=== PATIENT | male | born 1950 | race African-American/Black ===

== ENCOUNTER 2019-05-29 10:00 | Outpatient (RCR) | payer BC, MEDICARE, SELFPAY ==
[2019-03-01 12:13] VITALS: PULSE 50
--- NOTE | 2019-03-04 11:43 | PCCPR ---
Absent today due to inclement weather.
--- NOTE | 2019-04-25 10:54 | PCCPR ---
Liborio absent this week. Called today to check in with him and he said that Monday he had a doctor's appointment, Monday he wasn't feeling well and today he had people at his house doing repair work. He plans to return Monday.
== END 2019-05-29 16:15 | disposition home or self-care (01) ==
LOC: ANHCPREHAB 10:00
PROVIDERS: PCP Family Medicine; Visit Provider Internal Medicine Cardiovascular Disease
DX: Z95.1 Presence of aortocoronary bypass graft (principal)
CPT/HCPCS: 93798

== ENCOUNTER 2020-01-03 07:09 | Outpatient (NON) | payer BC, MEDICARE, SELFPAY ==
[2020-01-03 22:31] LABS: SARS-CoV-2 RNA PCR Negative
== END 2020-01-03 07:10 ==
PROVIDERS: PCP Family Medicine; Visit Provider Family Medicine
DX: R68.89 Other general symptoms and signs (principal); Z20.828 Contact with and (suspected) exposure to other viral communicable diseases
CPT/HCPCS: 87635; C9803; U0003

== ENCOUNTER 2020-01-31 11:17 | Outpatient (CLI) | payer BC, MEDICARE, SELFPAY ==
[2020-01-31 12:03] LABS: Cholesterol 155 mg/dL (0-200); HDL Direct 64 mg/dL; Triglycerides 43 mg/dL (<150)
[2020-01-31 12:13] LABS: LDL Cholesterol Direct 56 mg/dL
== END 2020-01-31 11:18 | disposition home or self-care (01) ==
LOC: ANHLAB 11:20
PROVIDERS: PCP Family Medicine; Visit Provider Internal Medicine Cardiovascular Disease
DX: I25.110 Atherosclerotic heart disease of native coronary artery with unstable angina pectoris (principal); Z13.220 Encounter for screening for lipoid disorders; Z79.899 Other long term (current) drug therapy
CPT/HCPCS: 36415; 80061

== ENCOUNTER 2021-01-15 11:33 | Outpatient (CLI) | payer BC, MEDICARE, SELFPAY ==
[2021-01-15 12:01] LABS: Basophils Percent Auto 0.7 % (0.2-1.2); Eosinophils Absolute Auto 0.1 K/mm3 (0-0.3); Eosinophils Percent Auto 4.6 % (0-4.4); Hematocrit 41.9 % (42.0-52.0); Hemoglobin 14.1 g/dL (14.0-18.0); Immature Granulocyte Absolute 0.01 K/mm3 (0.00-0.031); Immature Granulocyte Percent A 0.3 % (0-0.5); Lymphocytes Absolute Auto 0.84 K/mm3 (0.9-3.2); Lymphocytes Percent Auto 27.8 % (18.3-44.2); Mean Corpuscular HGB Conc 33.7 g/dl (32-36); Mean Corpuscular Hemoglobin 31.2 pg (26-34); Mean Corpuscular Volume 92.7 fl (80-100); Mean Platelet Volume 8.7 fl (7.4-10.4); Monocytes Absolute Auto 0.3 K/mm3 (0.1-0.6); Monocytes Percent Auto 9.3 % (2.6-8.5); Neutrophils Absolute Auto 1.7 K/mm3 (1.3-6.7); Neutrophils Percent Auto 57.3 % (45.5-73.1); Platelet Count Result 161 k/mm3 (150-375); Red Blood Count 4.52 M/mm3 (4.6-6.20); Red Cell Distribution Width 13.2 % (11.5-14.5)
[2021-01-15 12:13] LABS: Alanine Aminotransferase 32 U/L (4-50); Albumin Level 4.5 g/dL (3.5-5.1); Alkaline Phosphatase 89 U/L (38-126); Anion Gap 8 mmol/L (8-16); Aspartate Amino Transferase 35 U/L (17-59); Bilirubin,Total 0.6 mg/dL (0.2-1.3); Blood Urea Nitrogen 14 mg/dL (9-20); Calcium 9.1 mg/dL (8.4-10.2); Carbon Dioxide 28 mmol/L (22-30); Chloride 105 mmol/L (98-107); Cholesterol 142 mg/dL (0-200); Estimated Glomerular Filt Rate > 60; Glucose 101 mg/dL (65-110); HDL Direct 81 mg/dL; Potassium 4.4 mmol/L (3.4-5.0); Sodium 141 mmol/L (137-145); Triglycerides 40 mg/dL (<150)
[2021-01-15 12:25] LABS: LDL Cholesterol Direct 37 mg/dL
[2021-01-15 12:44] LABS: Prostate Specific Antigen 1.5 ng/mL (< OR = 4.0)
[2021-01-15 13:56] LABS: Folic Acid 7.8 ng/mL (2.76->20)
[2021-01-15 14:01] LABS: Erythrocyte Sedimentation Rate 23 mm/hr (0-20)
== END 2021-01-15 11:34 | disposition home or self-care (01) ==
LOC: ANHLAB 11:44
PROVIDERS: PCP Family Medicine; Visit Provider Physician Assistant Medical
DX: R42 Dizziness and giddiness (principal); I25.10 Atherosclerotic heart disease of native coronary artery without angina pectoris; E78.5 Hyperlipidemia, unspecified; F03.90 Unspecified dementia, unspecified severity, without behavioral disturbance, psychotic disturbance, mood disturbance, and anxiety; I10 Essential (primary) hypertension; Z68.25 Body mass index [BMI] 25.0-25.9, adult; Z12.5 Encounter for screening for malignant neoplasm of prostate
CPT/HCPCS: 36415; 80053; 80061; 82607; 82746; 84153; 84443; 85025; 85652; G0103

== ENCOUNTER 2021-03-23 14:00 | Outpatient (CLI) | payer BC, MEDICARE, SELFPAY ==
--- NOTE | ~2021-03-23 | MR_ITS ---
EXAMINATION: MR lumbar spine wo [facility] EXAM DATE: 03/23/2021 15:23 INDICATION: M54.50 - Low back pain, unspecified . TECHNIQUE: Multi-sequential, multiplanar MR images of the lumbar spine were obtained without contrast . Sagittal T1, T2, T2 fat saturation images. Axial T2 weighted images. Comparison is made to prior examination from 08/20/2013. FINDINGS: There is been interval posterior fusion L4-S1. Interbody device at L5-S1. Solid bone bridgi ng of the vertebral bodies at L4-5 and grade 1 anterolisthesis position. Moderate to severe disc dise ase at L2-3 with endplate edema and mild endplate compression fractures identified, probably subacute . Mild loss of these L2 and L3 vertebral body heights. Moderate disc disease L3-4. The conus medullar is terminates at the T12-L1 level and has normal signal intensity and morphology. Level by level evaluation: T12-L1: Disc does not extend beyond the endplate margin. Facet arthropathy: Minimal. Neural foraminal stenosis: No stenosis. Central canal stenosis: No stenosis. L1-L2: Disc does not extend beyond the endplate margin. Facet arthropathy: Mild. Neural foraminal stenosis: Mild right. Central canal stenosis: No stenosis. L2-L3: There is a moderate diffuse disc bulge. Facet arthropathy: Severe right, mild to moderate left. Neural foraminal stenosis: Moderate to severe left, moderate right. Central canal stenosis: Moderate. Left hemilaminotomy. L3-L4: There is a moderate to large diffuse disc bulge. Facet arthropathy: Severe bilateral. Ligamentum flavum enlargement. Neural foraminal stenosis: Moderate bilateral. Central canal stenosis: Moderate to severe. L4-L5: This level is fused. Facet arthropathy: Fused. Neural foraminal stenosis: Moderate right, mild to moderate left. Central canal stenosis: Mild. L5-S1: This level is fused. Facet arthropathy: Fused. Neural foraminal stenosis: Mild to moderate right, mild left. Central canal stenosis: No stenosis. IMPRESSION: 1. Lumbar spondylosis with moderate to severe L3-4 central canal stenosis. 2. L2-3 and L3-4 neural foraminal stenosis. Reviewed, dictated and finalized at location A. R CUTTER
== END 2021-03-23 14:01 | disposition home or self-care (01) ==
LOC: ANHIMG 14:05
PROVIDERS: PCP Family Medicine; Visit Provider Family Medicine
DX: G89.29 Other chronic pain (principal); M54.50 Low back pain, unspecified; Z98.890 Other specified postprocedural states; M47.816 Spondylosis without myelopathy or radiculopathy, lumbar region; M48.061 Spinal stenosis, lumbar region without neurogenic claudication
CPT/HCPCS: 72148

== ENCOUNTER 2021-06-03 11:00 | Outpatient (RCR) | payer BC, MEDICARE, SELFPAY ==
--- NOTE | 2021-03-11 10:23 | PTOPEVAL ---
PHYSICAL THERAPY EVALUATION AND PLAN OF CARE 03-11-21 Thank you for referring Liborio Wolfe to [facility], for the diagnosis of back pain and dizziness. He determined that he would like to start his PT treatment on the dizziness. After that is completed, will do evaluation and treatment for low back pain. He is scheduled to be seen for therapy? 1-2 x/week for 5 weeks. Please review, sign, date and return this plan of care JUAN. I agree with and certify that the following plan of care is medically necessary. Referring Physician Date Attending Provider: Rosalba Gaston MD PT Outpatient Evaluation Start: 03/11/21 09:09 Document 03/11/21 09:00 KAROL (Rec: 03/11/21 10:22 KAROL [id number]) Past Medical History Source of Past Medical History Recalled from Previous Visit, Confirmed with Patient/Family Neurological History Hx Other Neurological Disorders Yes: VERTIGO Cardiovascular History Hx Cardiac Arrhythmia Yes: PVC'S Hx Cardiac Surgery Yes: CABG 2018 Hx Coronary Artery Bypass Graft Yes: JAN 2019 Hx Coronary Artery Disease Yes Hx Hypercholesterolemia Yes: meds Hx Hypertension Yes: meds Hx Palpitations Yes Respiratory History Hx Sleep Apnea Yes: HAD SURGERY TO CORRECT Gastrointestinal History Hx Gastroesophageal Reflux Disease Yes Hx Ulcer Yes: DUODENAL REMOTE HISTORY Genitourinary History Hx Genitourinary Disorders No Significant History Musculoskeletal History Hx Arthritis Yes: from top to bottom of body;have had wrist B,neck& back injections Hx Degenerative Disk Disease Yes Hx Joint Replacement Yes: R TKR and revision of it Hx Spinal Surgery Yes: LUMBER FUSION L4-5/S1, PARTIAL LAMINECTOMY,R&L rot cuff surg Hx Other Musculoskeletal Disorders Yes: BUNIONECTOMY RIGHT FOOT Hematological History Hx Hematological Disorders No Significant History Endocrine History Hx Diabetes Yes: prediabetic- monitoring HEENT History Hx HEENT Disorders No Significant History Integumentary History Hx Skin Disorders No Significant History Reproductive History Hx Reproductive Disorders No Significant History Psychosocial History Hx Depression Yes: MEDS Pain History History of Any Previous or Ongoing No Significant History Instance of Pain Anesthesia History Hx Anesthesia Reactions No Significant History Evaluation Information Problem Diagnosis dizziness, lower back strain, overexertion from repetitve movements Onset August 2020 Subjective Information pt has multiple diag
--- NOTE | 2021-04-12 11:48 | PTOPEVAL ---
PHYSICAL THERAPY REEVALUATION 04-12-21 Refer to the clinical summary below, for his status today, compared to the initial evaluation, for his vestibular system. The goals were partially achieved. His vestibular treatment will be completed and at his next appointment, his back pain will be evaluated and a treatment plan set for his back pain. Thank you for referring Liborio Wolfe to [facility][Note 3[facility]? Please review, sign, date and return this reevaluation report JUAN. I agree with and certify that the following plan of care is medically necessary. Referring Physician Date Attending Provider: Rosalba Gaston MD Document 04/12/21 11:05 KAROL (Rec: 04/12/21 11:48 KAROL [id number]) Assessment Status Re-evaluation Subjective Information Liborio reports: overall the Query Text:As Reported By Patient/ dizziness is better, am more Family aware of how to do things and think about what I am doing-- move slower and not as quickly ; still have some dizziness; sometimes feel like almost walking normal; have not had any recent falls; am able to get through what I need to do ; does most of the activities and going out shopping; have not been in the mind set to go out and do things like I used to do; feel like ready to finish therapy treatment for vestibular and start on balance and back issues. Pain Assessment Timing of Pain Assessment Timing of Pain Assessment Assessment Pain Scale Pain Scale Used Numeric (1 - 10) Self Report Pain Assessment Bilateral Neck Reported Pain Level 0 Bilateral Back Reported Pain Level 2 Pain Frequency Chronic Pain Score Pain Score 0,2: Self Report Interventions Used Interventions Used By Clinicians Education Vestibular Evaluation Vestibular Medical Information Standardized Tests Dizziness Handicap Inventory Standardized Test Scores (Number 0-100) 36 Vestibular Testing Vestibular Testing Comments standing: -head stable, with eye tracking R/L 30 reps and up/ down x 30 reps- no s/s and maintain standing balance; and good tracking of eyes; - gaze stabilization with head turn R/L 30 reps and up/down 30 reps-- no
--- NOTE | 2021-04-14 13:26 | PTOPEVAL ---
PHYSICAL THERAPY EVALUATION AND PLAN OF CARE 04-14-21 Thank you for referring Liborio Wolfe to [facility], for the diagnosis of back pain. He is scheduled to be seen for therapy? 2 x/week for 4 weeks. Please review, sign, date and return this plan of care JUAN. I agree with and certify that the following plan of care is medically necessary. Referring Physician Date Attending Provider: Rosalba Gaston MD PT Outpatient Evaluation Document 04/14/21 12:35 KAROL (Rec: 04/14/21 13:26 KAROL [id number]) Past Medical History Source of Past Medical History Recalled from Previous Visit, Confirmed with Patient/Family Neurological History Hx Other Neurological Disorders Yes: VERTIGO Cardiovascular History Hx Cardiac Arrhythmia Yes: PVC'S Hx Cardiac Surgery Yes: CABG 2018 Hx Coronary Artery Bypass Graft Yes: JAN 2019 Hx Coronary Artery Disease Yes Hx Hypercholesterolemia Yes: meds Hx Hypertension Yes: meds Hx Palpitations Yes Respiratory History Hx Sleep Apnea Yes: HAD SURGERY TO CORRECT Gastrointestinal History Hx Gastroesophageal Reflux Disease Yes Hx Ulcer Yes: DUODENAL REMOTE HISTORY Genitourinary History Hx Genitourinary Disorders No Significant History Musculoskeletal History Hx Arthritis Yes: from top to bottom of body;have had wrist B,neck& back injections Hx Degenerative Disk Disease Yes Hx Joint Replacement Yes: R TKR and revision of it Hx Spinal Surgery Yes: LUMBER FUSION L4-5/S1, PARTIAL LAMINECTOMY,R&L rot cuff surg Hx Other Musculoskeletal Disorders Yes: BUNIONECTOMY RIGHT FOOT Hematological History Hx Hematological Disorders No Significant History Endocrine History Hx Diabetes Yes: prediabetic- monitoring HEENT History Hx HEENT Disorders No Significant History Integumentary History Hx Skin Disorders No Significant History Reproductive History Hx Reproductive Disorders No Significant History Psychosocial History Hx Depression Yes: MEDS Pain History History of Any Previous or Ongoing No Significant History Instance of Pain Anesthesia History Hx Anesthesia Reactions No Significant History Evaluation Information Problem Diagnosis low back pain Onset Jan 2021 Subjective Information gradual increase in back pain; Query Text:As Reported By Patient/ chronic back pain issues; Family seeing pain management dr for neck and back pain, to have back injection next week; have
--- NOTE | 2021-04-21 11:34 | PCPTNOTE ---
Patient called & cancelled scheduled appointment this date due to snowy weather.
--- NOTE | 2021-05-04 11:29 | OTOPEVAL ---
OCCUPATIONAL THERAPY INITIAL EVALUATION REPORT 05/04/21 Thank you for referring Liborio Wolfe to [facility].? The patient is scheduled to be seen for therapy? 2x/week for 4 weeks. Please review, sign, date and return this plan of care JUAN. I agree with and certify that the following plan of care is medically necessary. Referring Physician Date Referring Provider: Dr. Shun Blevins *OT Outpatient Evaluation Start: 05/04/21 09:59 Outpatient Past Medical History Past Medical History Source of Past Medical History Recalled from Previous Visit, Confirmed with Patient/Family Neurological History Hx Other Neurological Disorders Yes: VERTIGO Cardiovascular History Hx Cardiac Arrhythmia Yes: PVC'S Hx Cardiac Surgery Yes: CABG 2018 Hx Coronary Artery Bypass Graft Yes: JAN 2019 Hx Coronary Artery Disease Yes Hx Hypercholesterolemia Yes: meds Hx Hypertension Yes: meds Hx Palpitations Yes Respiratory History Hx Sleep Apnea Yes: HAD SURGERY TO CORRECT Gastrointestinal History Hx Gastroesophageal Reflux Disease Yes Hx Ulcer Yes: DUODENAL REMOTE HISTORY Genitourinary History Hx Genitourinary Disorders No Significant History Musculoskeletal History Hx Arthritis Yes: from top to bottom of body;have had wrist B,neck& back injections Hx Degenerative Disk Disease Yes Hx Joint Replacement Yes: R TKR and revision of it Hx Spinal Surgery Yes: LUMBER FUSION L4-5/S1, PARTIAL LAMINECTOMY,R&L rot cuff surg Hx Other Musculoskeletal Disorders Yes: BUNIONECTOMY RIGHT FOOT Hematological History Hx Hematological Disorders No Significant History Endocrine History Hx Diabetes Yes: prediabetic- monitoring HEENT History Hx HEENT Disorders No Significant History Integumentary History Hx Skin Disorders No Significant History Reproductive History Hx Reproductive Disorders No Significant History Psychosocial History Hx Depression Yes: MEDS Pain History History of Any Previous or Ongoing No Significant History Instance of Pain Anesthesia History Hx Anesthesia Reactions No Significant History Evaluation Information Problem Diagnosis Bilateral wrist pain and finger stiffness Onset Chronic Subjective Information Liborio reports getting Query Text:As Reported By Patient/ regular injections (4x/year) Family to the left wrist for ~2 years now. He gets right wrist injections about every other MD visit or twice a year. He
--- NOTE | 2021-05-13 11:46 | PTOPEVAL ---
PHYSICAL THERAPY DISCHARGE 05-13-21 Refer to the clinical summary below, for his status today, compared to the last assessment. He has improved and goals were achieved. Discharge PT services. Thank you for referring Liborio Wolfe to [facility].? Please review, sign, date and return this Discharge report JUAN. I agree with and certify that the following plan of care is medically necessary. Referring Physician Date Attending Provider: Rosalba Gaston MD Document 05/13/21 11:00 KAROL (Rec: 05/13/21 11:46 KAROL [id number]) Subjective Information Liborio reports: am not having Query Text:As Reported By Patient/ as much discomfort when lying Family down as I was; had 1 injection and 2nd is scheduled May 21/next week; working on the exercises at home; Pain Assessment Timing of Pain Assessment Timing of Pain Assessment Assessment Pain Scale Pain Scale Used Numeric (1 - 10) Self Report Pain Assessment Bilateral Back Reported Pain Level 1 Pain Description Aching,Sharp,Tightness Radicular Pain Location R and L lumbar area Pain Frequency Chronic,Continuous Other Pain Description sometimes sharp; Lowest Pain Intensity 0 Greatest Pain Intensity 3 Pain Aggravating Factors Exercise/Activity,Walking, Weight Bearing/Standing Pain Behaviors None Pain Score Pain Score 1: Self Report Additional Pain Score Comments Oswestry self assessment functional activity score of 34% limitation in activity reported tolerances: sitting depend upon surface, in comfortable chair 60 min, standing 10 min, walking 10-15 minutes back is better than before; injections and therapy have really helped; Interventions Used Interventions Used By Clinicians Education,Exercise Pain Relief Interventions Used By Exercise,Inactivity/Rest, Patient Position Change Other Alleviating Interventions stretching, take tylenol PRN; use roller massage for back Gross Lower Extremity Range of Motion hamstring length with supine Comments SLR R 70'/L 70' hip extension in prone R 5'/L 5' anterior hip/quad length with prone knee flexion R 90'/L 95' Gross Lower Extremity Strength functional strength testing:
--- NOTE | 2021-06-03 11:40 | OTOPEVAL ---
OCCUPATIONAL THERAPY RE-EVALUATION REPORT AND DISCHARGE SUMMARY 06/03/21 Liborio is a 71 year-old, right handed male has participated in outpatient hand therapy x6 visits for bilateral wrist/hand pain due to degenerative changes from OA. Treatment has included modalities for pain, manual therapy, education on joint protection techniques, and adaptive ADL strategies/equipment. At this time he is having less pain on a daily basis and his 9/10 pain jolts are less frequent. He verbalizes excellent understanding of joint protection techniques and adaptive ADL strategies. No further skilled OT indicated at this time. Thank you for referring Liborio Wolfe to [facility]. Please review, sign, date and return this D/C Note JUAN. I agree with and certify that the following plan of care is medically necessary. Referring Physician Date Referring Provider: Dr. Shun Blevins *OT Outpatient Re-Evaluation Start: 05/04/21 09:59 Diagnosis Bilateral wrist pain and finger stiffness Onset Chronic Subjective Information Patient reports that since Query Text:As Reported By Patient/ beginning OT he has learned a Family lot on how to manage the left wrist pain , noting joint protection techniques and activity modification. He notes having go to treatments at home including heat, massage, distraction, and gentle ROM. Overall he reports he is having less left wrist pain on a regular basis. Pain Assessment Timing of Pain Assessment Timing of Pain Assessment Re-assessment Pain Scale Pain Scale Used Numeric (1 - 10) Self Report Pain Assessment Left Wrist(s) Reported Pain Level 2 Pain Description Aching Pain Frequency Chronic,Continuous Lowest Pain Intensity 1 Greatest Pain Intensity 9 Pain Score Pain Score 2: Self Report Interventions Used Interventions Used By Clinicians Education,Exercise,Paraffin Upper Extremity Range of Motion Wrist Range of Motion Right Wrist Flexion - Active 75 Wrist Extension - Active 60 Wrist Radial Deviation - Active 20 Wrist Ulnar Deviation - Active 25 Left Wrist Flexion - Active 65 Wrist Extension - Active 40 Wrist Radial Deviation - Active 8 Wrist Ulnar Deviation - Active 25 Wrist Range of Motion Comments No change in ROM. Hand City Route Driver/Pinch Strength Assessment Hand Left City Route Driver Strength (lbs) 64 Right City Route Driver Strength (lbs) 75 Hand City Route Driver/Pinch Strength Comments No change in steel box toe inserter strength. Bilateral steel box toe inserter strengths are WFL. Palpation Assessment Pa
== END 2021-06-03 13:56 | disposition home or self-care (01) ==
LOC: ANHOT 11:00
PROVIDERS: PCP Family Medicine; Visit Provider Family Medicine
DX: R42 Dizziness and giddiness (principal); S39.012D Strain of muscle, fascia and tendon of lower back, subsequent encounter; X50.3XXD Overexertion from repetitive movements, subsequent encounter
CPT/HCPCS: 97018; 97035; 97110; 97112; 97140; 97161; 97162; 97166

== ENCOUNTER 2022-01-24 14:38 | Outpatient (CLI) | payer BC, MEDICARE, SELFPAY ==
--- NOTE | ~2022-01-24 | MR_ITS ---
EXAMINATION: MR brain IAC wo con DATE: 01/24/2022 16:13 INDICATION: Acoustic neuroma. Vertigo. Left-sided hearing loss. TECHNIQUE: Magnetic resonance imaging (MRI) of the brain, brainstem, and internal auditory canals was performed without intravenous contrast. COMPARISON: Brain MRI 01/14/17 FINDINGS: There is no intracranial hemorrhage, acute infarction, or abnormal intracranial mass lesion . There are scattered areas of nonspecific increased T2-weighted signal intensity in the cerebral whi te matter, which is within normal limits for the patient's age. The ventricles are normal in size. T here is mild mucosal thickening in the paranasal sinuses. The orbits are normal. The mastoid air cell s are normal. The internal auditory canals and inner and middle ears are normal. IMPRESSION: 1. Normal aging brain. Reviewed, dictated and finalized at location A. GUIDE IMPRESSION: 1. Normal aging brain.
== END 2022-01-24 14:39 | disposition home or self-care (01) ==
PROVIDERS: PCP Family Medicine; Visit Provider Family Medicine
DX: H90.5 Unspecified sensorineural hearing loss (principal)
CPT/HCPCS: 70551

== ENCOUNTER 2022-01-25 10:44 | Outpatient (CLI) | payer BC, MEDICARE, SELFPAY ==
[2022-01-25 11:16] LABS: Cholesterol 136 mg/dL (0-200); HDL Direct 68 mg/dL; Triglycerides 44 mg/dL (<150)
[2022-01-25 11:27] LABS: LDL Cholesterol Direct 34 mg/dL
== END 2022-01-25 10:45 | disposition home or self-care (01) ==
LOC: ANHLAB 10:52
PROVIDERS: PCP Family Medicine
DX: I25.10 Atherosclerotic heart disease of native coronary artery without angina pectoris (principal)
CPT/HCPCS: 36415; 80061

== ENCOUNTER 2022-05-01 12:44 | Emergency (ER) | payer BC, MEDICARE, SELFPAY ==
--- NOTE | ~2022-05-01 | XR_ITS ---
XR lumbar spine 2-3V DATE: 05/01/2022 13:42 INDICATION: Fall last week. Right sciatica TECHNIQUE: AP, lateral and coned lateral lumbosacral standing views COMPARISON: 03/2021 MR lumbar spine FINDINGS: Postoperative change: Posterior rods and L4-S1 pedicle screws and screws extending through the sacroiliac areas in addition to L5-S1 interbody spinal fusion. There is osteopenia. There is dextroscoliosis of the lower thoracic and lumbar spine. There is severe degenerative disc disease at L2-3, especially on the left and moderate degenerative d isease at L3-4. There is degenerative change at the apophyseal joints. There is grade 1 anterolisthesis at L2-3 and L 3-4 as well as L4-5. Included lower thoracic and lumbar pedicles are intact. The lumbar spine fracture or bone destruction is detected. The sacroiliac joints are intact. Status post sternotomy IMPRESSION: Posterior lumbosacral surgical fusion Multilevel degenerative disc disease Degenerative changes apophyseal joints with associated grade 1 anterolisthesis at L2-3, L3-4, L4-5 Reviewed, dictated and finalized at location A. T FURNACE TENDER
[2022-05-01 12:46] VITALS: BP 144/59; PULSE 68; RESP 20; TEMP 36.6; O2SAT 100
[2022-05-01] MEDS: KETOROLAC 30 MG/ML VIAL (*BKC) IM (13:43)
--- NOTE | 2022-05-01 15:24 | ED.GENADULT ---
HPI - General Adult General Chief complaint: Back Pain/Injury Stated complaint: BACK PAIN Time Seen by Provider: 05/01/22 12:49 History of Present Illness HPI narrative: Patient is a 71-year-old male who presents ER with low back pain. Had a fall 4 days ago and then 2 days later he began having some right-sided low back pain. He has pain that radiates down into his anterior right thigh. It is shooting worse with going from sitting to standing. He has been walking with a walker due to his discomfort. He has some occasional tingling that occurs as well. No difficulty with urination or defecation. No saddle anesthesia. Denies fevers or chills or sweats. He has been taking baclofen chronically for chronic back pain and has been seeing pain management. He recently was started on physical therapy as well. Related Data Home Medications Medication Instructions Recorded Confirmed acetaminophen 325 mg tablet 650 mg PO QID PRN Pain 03/01/19 11/17/21 psyllium seed (sugar) oral powder 1 tsp PO DAILY PRN Constipation 03/01/19 11/17/21 (Metamucil (sugar) oral powder) diltiazem HCl 120 mg 120 mg PO DAILY 05/14/20 11/17/21 capsule,extended release 24 hr aspirin 81 mg chewable tablet 81 mg PO DAILY 11/17/21 11/17/21 (Mehdi Chewable Low Dose Aspirin) Allergies Allergy/AdvReac Type Severity Reaction Status Date / Time milk Allergy Severe STOMACH Verified 05/01/22 12:57 UPSET onion Allergy Severe STOMACH Verified 05/01/22 12:57 UPSET Penicillins Allergy Unknown Skin Verified 05/01/22 12:57 Reaction Review of Systems Constitutional: Constitutional: Denies chills and Denies fever(s) Gastrointestinal: Gastrointestinal: Denies diarrhea, Denies nausea and Denies vomiting Musculoskeletal: Musculoskeletal: Reports back pain, Denies arthralgias, Denies joint swelling and Reports muscle cramps Integumentary/Breasts: Skin/Breast: Denies erythema and Denies rash Neurologic: Denies headache(s), Denies focal weakness and Reports numbness PMFSH Past Medical History Medical History Arthritis of knee, left H/O supraventricular tachycardia Hx of atrial fibrillation without current medication Orthostasis Ulcer Surgical History Surgical History History of radiofrequency ablation procedure for cardiac arrhythmia History of revision of total replacement of right knee joint History of shoulder surgery bilateral rotator cuff surgery S/P CABG x 4 2019 S/P foot surgery, right bunion Family History Family History Father Family history of elevated blood lipids Diabetes mellitus Hypertension Congestive heart failure Sibling Family history of elevated blood lipids Diabetes mellitus Family history of lupus erythematosus Hypertension Mother Family history of cardiovascular disease Family history of elevated blood lipids Family history of coronary artery disease Other Family history of hypercholesterolemia Social History Social History Smoking packs per day: 0.5 Smoking cigarettes per day: 10.0 Years smoked: 20 Smoking pack-years: 10.00 Smoking status: Former smoker Tobacco type: cigarettes Second hand tobacco smoke exposure: No Alcohol intake: never Living arrangements: with family Additional living arrangements comments: , [place] Occupation/Education: retired Gender identity (if verbalized by the patient): Male Exam Narrative: GENERAL: Well-appearing, well-nourished, and in no acute distress. HEAD: Normocephalic, atraumatic. EXTREMITIES: Normal range of motion. No edema. Back: Midline lumbar surgical scar that is old and well-healed. There is no midline tenderness to the T/L-spine. There is right paraspinal muscular tenderness at the level of L3 with
== END 2022-05-01 15:50 | disposition home or self-care (01) ==
PROVIDERS: Emergency Provider Emergency Medicine; PCP Family Medicine
DX: M54.41 Lumbago with sciatica, right side (principal); I48.91 Unspecified atrial fibrillation; I25.10 Atherosclerotic heart disease of native coronary artery without angina pectoris; M17.12 Unilateral primary osteoarthritis, left knee; Z96.651 Presence of right artificial knee joint; Z95.1 Presence of aortocoronary bypass graft; Z87.891 Personal history of nicotine dependence; Z79.82 Long term (current) use of aspirin; M51.36 Other intervertebral disc degeneration, lumbar region
CPT/HCPCS: 72100; 96372; 99283; J1885

== ENCOUNTER → 2022-05-13 16:55 | Outpatient (CLI) | payer BC, MEDICARE, SELFPAY ==
--- NOTE | ~2022-05-13 | MR_ITS ---
EXAMINATION: MR lumbar spine wo con DATE: 05/13/2022 17:59 INDICATION: Chronic low back pain. TECHNIQUE: Magnetic resonance imaging (MRI) of the lumbar spine was performed without intravenous con trast. Sequences included sagittal T2-weighted FSE, sagittal T2-weighted FS FSE, sagittal T1-weighted FSE, and axial T2-weighted FSE. COMPARISON: Lumbar spine MRI 03/23/2021 FINDINGS: There is 9 degrees dextrocurvature of lumbar spine. There is 7 mm anterolisthesis of L4 on L5. There are changes of posterior fusion procedure from L4 to S1 and the iliac bones. There is sever erasto decreased disc height at L4-L5 with interbody fusion. There are changes of anterior fusion proced ure at L5-S1 with interbody device. There is severely decreased disc height at L2-L3 and moderately d ecreased disc height at L3-L4 with endplate remodeling. The distal spinal cord signal intensity is no rmal. The conus medullaris is at L1. The following disc levels are specifically discussed: L1-L2: The disc is mildly bulging. There is moderate bilateral facet joint osteoarthritis. There is m ild bilateral neural foraminal stenosis. There is no central canal stenosis. L2-L3: The disc is bulging and has an annular fissure. There is severe bilateral facet joint osteoart hritis. There is mild right and moderate left neural foraminal stenosis. There is mild central canal stenosis. L3-L4: The disc is bulging and has an annular fissure. There is severe bilateral facet joint osteoart hritis. There is moderate bilateral neural foraminal stenosis. There is moderate central canal stenos is. L4-L5: There is severe bilateral facet joint hypertrophy. There is moderate bilateral neural foramina l stenosis. There is mild central canal stenosis. L5-S1: There is moderate bilateral facet joint hypertrophy. There is mild bilateral neural foraminal stenosis. There is no central canal stenosis. IMPRESSION: 1. Severe lumbar spondylosis, stable from 03/23/2021. 2. Anterior fusion at L4-L5 and L5-S1. Posterior fusion procedure from L4 to the sacrum and iliac bon es. Reviewed, dictated and finalized at location A. ICAL MANAGER IMPRESSION: 1. Severe lumbar spondylosis, stable from 03/23/2021. 2. Anterior fusion at L4-L5 and L5-S1. Posterior fusion procedure from L4 to th e sacrum and iliac bones.
== END ==
PROVIDERS: PCP Family Medicine; Visit Provider Family Medicine
DX: M47.26 Other spondylosis with radiculopathy, lumbar region (principal); Z98.1 Arthrodesis status
CPT/HCPCS: 72148

== ENCOUNTER 2023-01-25 15:01 | Outpatient (CLI) | payer BC, MEDICARE, SELFPAY ==
[2023-01-25 19:40] LABS: Basophils Percent Auto 0.2 % (0.2-1.2); Eosinophils Absolute Auto 0.2 K/mm3 (0-0.3); Eosinophils Percent Auto 3.7 % (0-4.4); Hematocrit 40.6 % (42.0-52.0); Hemoglobin 13.2 g/dL (14.0-18.0); Immature Granulocyte Absolute 0.02 K/mm3 (0.00-0.031); Immature Granulocyte Percent A 0.5 % (0-0.5); Lymphocytes Absolute Auto 0.77 K/mm3 (0.9-3.2); Mean Corpuscular HGB Conc 32.5 g/dl (32-36); Mean Corpuscular Hemoglobin 31.2 pg (26-34); Mean Platelet Volume 9.8 fl (7.4-10.4); Monocytes Absolute Auto 0.4 K/mm3 (0.1-0.6); Monocytes Percent Auto 10.1 % (2.6-8.5); Neutrophils Absolute Auto 2.7 K/mm3 (1.3-6.7); Neutrophils Percent Auto 66.5 % (45.5-73.1); Platelet Count Result 192 k/mm3 (150-375); Red Blood Count 4.23 M/mm3 (4.6-6.20); Red Cell Distribution Width 12.8 % (11.5-14.5); White Blood Count 4.1 K/mm3 (4.5-10.0)
[2023-01-25 20:03] LABS: Alanine Aminotransferase 16 U/L (6-50); Albumin Level 4.5 g/dL (3.5-5.1); Alkaline Phosphatase 99 U/L (38-126); Anion Gap 5 mmol/L (8-16); Aspartate Amino Transferase 30 U/L (17-59); Bilirubin,Total 0.7 mg/dL (0.2-1.3); Blood Urea Nitrogen 19 mg/dL (9-20); Calcium 9.2 mg/dL (8.4-10.2); Carbon Dioxide 32 mmol/L (22-30); Chloride 100 mmol/L (98-107); Cholesterol 128 mg/dL (0-200); Estimated Glomerular Filt Rate > 60; Glucose 81 mg/dL (65-110); HDL Direct 67 mg/dL; Potassium 3.9 mmol/L (3.4-5.0); Sodium 137 mmol/L (137-145); Triglycerides 38 mg/dL (<150)
[2023-01-25 20:14] LABS: LDL Cholesterol Direct 40 mg/dL
[2023-01-25 20:51] LABS: Hemoglobin A1C 4.9 % (<5.7)
== END 2023-01-25 15:02 | disposition home or self-care (01) ==
LOC: ANHGOSHLAB 15:03
PROVIDERS: PCP Family Medicine; Visit Provider Family Medicine
DX: E78.5 Hyperlipidemia, unspecified (principal); I25.10 Atherosclerotic heart disease of native coronary artery without angina pectoris; M06.9 Rheumatoid arthritis, unspecified; R73.03 Prediabetes; G89.29 Other chronic pain
CPT/HCPCS: 36415; 80053; 80061; 82607; 83036; 84443; 85025

== ENCOUNTER 2023-02-07 00:17 | Day surgery (SDC) | payer BC, MEDICARE, SELFPAY ==
[2023-01-25 12:35] VITALS: BMI 23.1
--- NOTE | 2023-02-03 14:21 | SUR.PREOP ---
Patient called regarding upcoming procedure. Reviewed preop instructions, appointment times, and procedure prep.
[2023-02-07 09:33] VITALS: BP 137/86; PULSE 84; RESP 18; TEMP 36.6; O2SAT 84; BMI 22.8
[2023-02-07] MEDS: LACTATED RINGERS 1,000 ML 150 ML IV CONT (10:00)
--- NOTE | 2023-02-07 10:09 | PM.HPGS ---
History of Present Illness History of Present Illness Consent: Risks, benefits, and alternatives have been discussed and questions answered. Patient agrees to proceed with procedure. Chief complaint: neoplasm screening Narrative: Liborio Wolfe is a 72 year old male Presents for screening colonoscopy. Patient's current weight appetite and bowel movements are normal. Patient denies abdominal pain. He has had no bleeding. Family history noncontributory. Previous colonoscopy in 2015 was unremarkable. Review of Systems Review of Systems: Review of systems is noncontributory. [facility] Past Medical History Medical History Arthritis of knee, left H/O supraventricular tachycardia Hx of atrial fibrillation without current medication Orthostasis Ulcer Surgical History Surgical History History of radiofrequency ablation procedure for cardiac arrhythmia History of revision of total replacement of right knee joint History of shoulder surgery bilateral rotator cuff surgery Right 2010 left 2016 S/P CABG x 4 2019 S/P foot surgery, right bunion Family History Family History Father Family history of elevated blood lipids Diabetes mellitus Hypertension Congestive heart failure Sibling Family history of elevated blood lipids Diabetes mellitus Family history of lupus erythematosus Hypertension Mother Family history of cardiovascular disease Family history of elevated blood lipids Family history of coronary artery disease Other Family history of hypercholesterolemia Social History Social History Smoking packs per day: 0.5 Smoking cigarettes per day: 10.0 Years smoked: 20 Smoking pack-years: 10.00 Smoking status: Former smoker Tobacco type: cigarettes Second hand tobacco smoke exposure: No Alcohol intake: never Substance use type: does not use Lack of Transportation: No Lack of Food: Never True Current Housing: I Have Housing Concerned About Future Housing: No Difficulty Paying Gas/Electric Bills: No Difficulty Paying for Meds: No Currently Unemployed: No Education: Bachelor's Degree Difficulty w/ Childcare or Family Care: No Living arrangements: with family Additional living arrangements comments: , [place] Occupation/Education: retired Gender identity (if verbalized by the patient): Male Spiritual care concerns: No Meds Home Medications and Allergies Home Medications Medication Instructions Recorded Confirmed Type acetaminophen 325 mg tablet 650 mg PO QID PRN Pain 03/01/19 01/25/23 History psyllium seed (sugar) oral powder 1 tsp PO DAILY PRN Constipation 03/01/19 01/25/23 History (Metamucil (sugar) oral powder) diltiazem HCl 120 mg 120 mg PO DAILY 05/14/20 01/25/23 History capsule,extended release 24 hr sotalol 120 mg tablet 60 mg PO Q12H #180 tabs 10/06/20 01/25/23 Rx aspirin 81 mg chewable tablet 81 mg PO DAILY 11/17/21 01/25/23 History (Mehdi Chewable Low Dose Aspirin) baclofen 10 mg tablet See Rx Instructions .Route 04/04/22 01/25/23 Rx .COMPLEX #180 tabs atorvastatin 80 mg tablet 80 mg PO HS #90 tabs 09/19/22 01/25/23 Rx diazepam 5 mg tablet (Valium) 5 mg PO QHS PRN muscle spasm #20 10/10/22 01/25/23 Rx tabs duloxetine 60 mg capsule,delayed 60 mg PO DAILY #90 caps 12/07/22 01/25/23 Rx release (Cymbalta) duloxetine 30 mg capsule,delayed 30 mg PO DAILY #30 caps 02/01/23 Rx release Allergies Allergy/AdvReac Type Severity Reaction Status Date / Time milk Allergy Severe STOMACH Verified 01/25/23 13:58 UPSET onion Allergy Severe STOMACH Verified 01/25/23 13:58 UPSET Penicillins Allergy Unknown Skin Verified 01/25/23 13:58 Reaction gabapentin AdvReac Intermediate dizziness Ve
--- NOTE | 2023-02-07 10:13 | WPDANESEPPF ---
Anes - Initial Pre Proc Eval Procedure: Operation Date: 02/07/23 11:00 Proposed Procedures p Screening Colonoscopy - John Solis MD Date/Time: 02/07/23 10:13 Surgeon: John Solis MD Pre Op Diagnosis: neoplasm screening Patient Data Age: 72 Gender: M Height: 1.75 m Weight: 70.1 kg Last Vital Signs Temp 97.9 F 02/07/23 09:33 Pulse 84 02/07/23 09:33 Resp 18 02/07/23 09:33 BP 137/86 02/07/23 09:33 Pulse Ox 84 L 02/07/23 09:33 O2 Del Method Room Air 02/07/23 09:33 Allergies Allergy/AdvReac Type Severity Reaction Status Date / Time milk Allergy Severe STOMACH Verified 01/25/23 13:58 UPSET onion Allergy Severe STOMACH Verified 01/25/23 13:58 UPSET Penicillins Allergy Unknown Skin Verified 01/25/23 13:58 Reaction gabapentin AdvReac Intermediate dizziness Verified 01/25/23 13:58 Home Medications Medication Instructions Recorded Confirmed Type acetaminophen 325 mg tablet 650 mg PO QID PRN Pain 03/01/19 01/25/23 History psyllium seed (sugar) oral powder 1 tsp PO DAILY PRN Constipation 03/01/19 01/25/23 History (Metamucil (sugar) oral powder) diltiazem HCl 120 mg 120 mg PO DAILY 05/14/20 01/25/23 History capsule,extended release 24 hr sotalol 120 mg tablet 60 mg PO Q12H #180 tabs 10/06/20 01/25/23 Rx aspirin 81 mg chewable tablet 81 mg PO DAILY 11/17/21 01/25/23 History (Medhi Chewable Low Dose Aspirin) baclofen 10 mg tablet See Rx Instructions .Route 04/04/22 01/25/23 Rx .COMPLEX #180 tabs atorvastatin 80 mg tablet 80 mg PO HS #90 tabs 09/19/22 01/25/23 Rx diazepam 5 mg tablet (Valium) 5 mg PO QHS PRN muscle spasm #20 10/10/22 01/25/23 Rx tabs duloxetine 60 mg capsule,delayed 60 mg PO DAILY #90 caps 12/07/22 01/25/23 Rx release (Cymbalta) duloxetine 30 mg capsule,delayed 30 mg PO DAILY #30 caps 02/01/23 Rx release Patient hx anesthesia problems: none Family hx anesthesia problems: none Results Review: All pre-operative results and documents have been reviewed as part of the pre-operative evaluation. [facility] Past Medical History Medical History Arthritis of knee, left H/O supraventricular tachycardia Hx of atrial fibrillation without current medication Orthostasis Ulcer Surgical History Surgical History History of radiofrequency ablation procedure for cardiac arrhythmia History of revision of total replacement of right knee joint History of shoulder surgery bilateral rotator cuff surgery Right 2010 left 2016 S/P CABG x 4 2019 S/P foot surgery, right bunion Family History Family History Father Family history of elevated blood lipids Diabetes mellitus Hypertension Congestive heart failure Sibling Family history of elevated blood lipids Diabetes mellitus Family history of lupus erythematosus Hypertension Mother Family history of cardiovascular disease Family history of elevated blood lipids Family history of coronary artery disease Other Family history of hypercholesterolemia Social History Social History Smoking packs per day: 0.5 Smoking cigarettes per day: 10.0 Years smoked: 20 Smoking pack-years: 10.00 Smoking status: Former smoker Tobacco type: cigarettes Second hand tobacco smoke exposure: No Alcohol intake: never Substance use type: does not use Lack of Transportation: No Lack of Food: Never True Current Housing: I Have Housing Concerned About Future Housing: No Difficulty Paying Gas/Electric Bills: No Difficulty Paying for Meds: No Currently Unemployed: No Education: Bachelor's Degree Difficulty w/ Childcare or Family Care: No Living arrangements: with family Additional living arrangements comments: , [place] Occupation/Education:
[2023-02-07 11:08] VITALS: BP 111/64; PULSE 65; RESP 16; O2SAT 99
[2023-02-07 11:18] VITALS: BP 120/56; PULSE 55; RESP 24; O2SAT 98
[2023-02-07 11:28] VITALS: BP 124/75; PULSE 50; RESP 18; O2SAT 98
== END 2023-02-07 11:41 | disposition home or self-care (01) ==
PROVIDERS: PCP Family Medicine; Visit Provider Internal Medicine Gastroenterology
PROC: 0DJD8ZZ Inspection of Lower Intestinal Tract, Via Natural or Artificial Opening Endoscopic (ICD-10-PCS; CPT 45378; principal; 2023-02-07 11:00)
DX: Z12.11 Encounter for screening for malignant neoplasm of colon (principal); K64.8 Other hemorrhoids; Z87.891 Personal history of nicotine dependence
CPT/HCPCS: 45378; J2001; J2704; J7120

== ENCOUNTER 2023-03-08 16:06 | Outpatient (CLI) | payer BC, MEDICARE, SELFPAY ==
[2023-03-08 20:00] LABS: Cholesterol 157 mg/dL (0-200); HDL Direct 76 mg/dL; Triglycerides 46 mg/dL (<150)
[2023-03-08 20:11] LABS: LDL Cholesterol Direct 50 mg/dL
== END 2023-03-08 16:07 | disposition home or self-care (01) ==
LOC: ANHGOSHLAB 16:10
PROVIDERS: PCP Family Medicine
DX: E78.5 Hyperlipidemia, unspecified (principal); I25.10 Atherosclerotic heart disease of native coronary artery without angina pectoris
CPT/HCPCS: 36415; 80061

== ENCOUNTER 2023-07-03 15:50 | Emergency (ER) | payer BC, MEDICARE, SELFPAY ==
--- NOTE | ~2023-07-03 | XR_ITS ---
EXAMINATION: XR shoulder RT min 2V DATE: 07/03/2023 21:19 INDICATION: Right shoulder injury. Fall. TECHNIQUE: 4 views of right shoulder were obtained. COMPARISON: None. FINDINGS: Bone alignment is normal. No fracture. There is mild osteoarthritis of glenohumeral joint. There is a loose body at posterior aspect of glenoid. Acromioclavicular joint is normal. IMPRESSION: 1. Mild right glenohumeral joint osteoarthritis with loose body. Reviewed, dictated and finalized at location E.
--- NOTE | ~2023-07-03 | XR_ITS ---
EXAMINATION: XR chest 1V portable DATE: 07/03/2023 20:30 INDICATION: Fall. TECHNIQUE: A single frontal view of the chest was obtained on 2 radiographs. COMPARISON: None. FINDINGS: There is no pneumonia, pleural effusion, or pneumothorax. The heart size is normal. Median sternotomy wires and mediastinal surgical clips are seen, likely from prior coronary artery bypass gr afting. An electronic device overlies the chest at the midline. IMPRESSION: 1. No acute cardiopulmonary disease. Reviewed, dictated and finalized at location E.
[2023-07-03 15:56] VITALS: BP 161/91; PULSE 90; RESP 16; TEMP 36.5; O2SAT 96
--- NOTE | 2023-07-03 20:09 | ECG_ITS ---
SEE SCANNED COPY FOR CONFIRMED REPORT MTDD
[2023-07-03 20:36] VITALS: BP 138/68; PULSE 55; RESP 19; O2SAT 100
[2023-07-03 20:54] LABS: Basophils Percent Auto 0.7 % (0.2-1.2); Eosinophils Absolute Auto 0.1 K/mm3 (0-0.3); Eosinophils Percent Auto 1.8 % (0-4.4); Hematocrit 39.9 % (42.0-52.0); Hemoglobin 13.2 g/dL (14.0-18.0); Immature Granulocyte Absolute 0.01 K/mm3 (0.00-0.031); Immature Granulocyte Percent A 0.4 % (0-0.5); Lymphocytes Absolute Auto 0.89 K/mm3 (0.9-3.2); Lymphocytes Percent Auto 32.5 % (18.3-44.2); Mean Corpuscular HGB Conc 33.1 g/dl (32-36); Mean Corpuscular Hemoglobin 31.9 pg (26-34); Mean Corpuscular Volume 96.4 fl (80-100); Mean Platelet Volume 8.5 fl (7.4-10.4); Monocytes Absolute Auto 0.3 K/mm3 (0.1-0.6); Monocytes Percent Auto 9.9 % (2.6-8.5); Neutrophils Absolute Auto 1.5 K/mm3 (1.3-6.7); Neutrophils Percent Auto 54.7 % (45.5-73.1); Platelet Count Result 172 k/mm3 (150-375); Red Blood Count 4.14 M/mm3 (4.6-6.20); White Blood Count 2.7 K/mm3 (4.5-10.0)
[2023-07-03 21:12] LABS: Alanine Aminotransferase 13 U/L (6-50); Albumin Level 4.4 g/dL (3.5-5.1); Alkaline Phosphatase 103 U/L (38-126); Anion Gap 9 mmol/L (4-12); Aspartate Amino Transferase 26 U/L (17-59); Bilirubin,Total 0.8 mg/dL (0.2-1.3); Blood Urea Nitrogen 9 mg/dL (9-20); Calcium 9.4 mg/dL (8.4-10.2); Carbon Dioxide 25 mmol/L (22-30); Chloride 106 mmol/L (98-107); Estimated CRCL calculation 71 ml/min; Estimated Glomerular Filt Rate > 60; Glucose 90 mg/dL (65-110); Potassium 3.6 mmol/L (3.4-5.0); Sodium 140 mmol/L (137-145)
[2023-07-03 21:24] LABS: Troponin I < 0.012 ng/mL (0.000-0.034)
[2023-07-03 22:00] VITALS: BP 111/59; PULSE 56; RESP 11; O2SAT 100
[2023-07-03 22:01] LABS: Appearance Urine Clear (Clear); Bilirubin Urine Negative (Negative); Blood Urine Negative (Negative); Color Urine Yellow (Yellow); Glucose Urine UA Negative (Negative); Ketones Urine 2+ mg/dL (Negative); Leukocyte Esterase Ur Negative LEU/UL (Negative); Nitrate Urine Negative (Negative); Protein Urine Negative (Negative); Specific Grav Ur 1.017 (1.001-1.035); pH Urine 5.5 (5.0-9.0)
[2023-07-03 22:07] VITALS: BP 111/59; PULSE 58; RESP 11; O2SAT 98
[2023-07-03 22:17] VITALS: BP 136/75; PULSE 71; RESP 14; O2SAT 100
[2023-07-03 22:17] LABS: Add Urine Microscopic? NO
[2023-07-03 23:01] VITALS: BP 111/53; PULSE 57; RESP 12; O2SAT 100
--- NOTE | 2023-07-04 04:30 | ED.FALL ---
HPI - Fall General Chief Complaint: Fall Stated Complaint: FALLS Time Seen by Provider: 07/03/23 20:09 History of Present Illness HPI Narrative: Patient presents here primarily for over fall week ago with pain to his right shoulder, but also because for the last year he has been having increasing pain from a injury to his tailbone to the point where he is now having difficulty with walking, and has not had an appetite and has had weight loss. Related Data Home Medications Medication Instructions Recorded Confirmed acetaminophen 325 mg tablet 650 mg PO QID PRN Pain 03/01/19 06/21/23 psyllium seed (sugar) oral powder 1 tsp PO DAILY PRN Constipation 03/01/19 06/21/23 (Metamucil (sugar) oral powder) diltiazem HCl 120 mg 120 mg PO DAILY 05/14/20 06/21/23 capsule,extended release 24 hr aspirin 81 mg chewable tablet 81 mg PO DAILY 11/17/21 06/21/23 (Mehdi Chewable Low Dose Aspirin) evolocumab 140 mg/mL subcutaneous mg subcut 06/21/23 06/21/23 pen injector (YouFiggarciaPlaytikaGaelick) tizanidine 4 mg tablet mg PO 06/21/23 06/21/23 Allergies Allergy/AdvReac Type Severity Reaction Status Date / Time milk Allergy Severe STOMACH Verified 06/21/23 15:41 UPSET onion Allergy Severe STOMACH Verified 06/21/23 15:41 UPSET Penicillins Allergy Unknown Skin Verified 06/21/23 15:41 Reaction gabapentin AdvReac Intermediate dizziness Verified 06/21/23 15:41 Review of Systems Review of Systems: CONST: No fever. HEENT: No sore throat C/V: No chest pain RESP: No cough GI: No appetite : No dysuria. M/S: Lower back pain SKIN: No rash. NEURO: Slightly tingling to the fingertips PSYCH: [No depression] COUNT INCLUDES [facility] Past Medical History Medical History Arthritis of knee, left H/O supraventricular tachycardia Hx of atrial fibrillation without current medication Orthostasis Ulcer Surgical History Surgical History History of radiofrequency ablation procedure for cardiac arrhythmia History of revision of total replacement of right knee joint History of shoulder surgery bilateral rotator cuff surgery Right 2010 left 2016 S/P CABG x 4 2019 S/P foot surgery, right bunion Family History Family History Father Family history of elevated blood lipids Diabetes mellitus Hypertension Congestive heart failure Sibling Family history of elevated blood lipids Diabetes mellitus Family history of lupus erythematosus Hypertension Mother Family history of cardiovascular disease Family history of elevated blood lipids Family history of coronary artery disease Other Family history of hypercholesterolemia Social History Social History Smoking packs per day: 0.5 Smoking cigarettes per day: 10.0 Years smoked: 20 Smoking pack-years: 10.00 Smoking status: Former smoker Tobacco type: cigarettes Second hand tobacco smoke exposure: No Alcohol intake: never Substance use type: does not use Lack of Transportation: No Lack of Food: Never True Current Housing: I Have Housing Concerned About Future Housing: No Difficulty Paying Gas/Electric Bills: No Difficulty Paying for Meds: No Currently Unemployed: No Education: Bachelor's Degree Difficulty w/ Childcare or Family Care: No Living arrangements: with family Additional living arrangements comments: , [place] Occupation/Education: retired Gender identity (if verbalized by the patient): Male Spiritual care concerns: No Exam Narrative: EXAMINATION OF ORGAN SYSTEMS/BODY AREAS: Constitutional: Vital signs per nursing GENERAL:[No acute distress, non-toxic appearing.] Does appear thin. HEAD: Normal with no signs of head trauma. EYES: EOMI, conjunctiva normal ENT: Hearing grossly intact
== END 2023-07-04 00:02 | disposition home or self-care (01) ==
PROVIDERS: Emergency Provider Emergency Medicine; PCP Family Medicine
DX: S49.91XA Unspecified injury of right shoulder and upper arm, initial encounter (principal); R63.4 Abnormal weight loss; Z68.20 Body mass index [BMI] 20.0-20.9, adult; R53.1 Weakness; M17.12 Unilateral primary osteoarthritis, left knee; I48.91 Unspecified atrial fibrillation; Z96.651 Presence of right artificial knee joint; Z95.1 Presence of aortocoronary bypass graft; Z87.891 Personal history of nicotine dependence; Z79.82 Long term (current) use of aspirin; I44.0 Atrioventricular block, first degree; R00.1 Bradycardia, unspecified; W19.XXXA Unspecified fall, initial encounter
CPT/HCPCS: 36415; 71045; 73030; 80053; 81003; 84484; 85025; 93005; 99284

== ENCOUNTER 2023-07-04 10:13 | Outpatient (CLI) | payer BC, MEDICARE, SELFPAY ==
[2023-07-04 19:03] LABS: Basophils Percent Auto 1.1 % (0.2-1.2); Eosinophils Absolute Auto 0.1 K/mm3 (0-0.3); Eosinophils Percent Auto 1.9 % (0-4.4); Hematocrit 39.5 % (42.0-52.0); Hemoglobin 12.7 g/dL (14.0-18.0); Immature Granulocyte Absolute 0.01 K/mm3 (0.00-0.031); Immature Granulocyte Percent A 0.4 % (0-0.5); Lymphocytes Absolute Auto 1.02 K/mm3 (0.9-3.2); Lymphocytes Percent Auto 38.2 % (18.3-44.2); Mean Corpuscular HGB Conc 32.2 g/dl (32-36); Mean Corpuscular Hemoglobin 31.6 pg (26-34); Mean Corpuscular Volume 98.3 fl (80-100); Mean Platelet Volume 9.2 fl (7.4-10.4); Monocytes Absolute Auto 0.2 K/mm3 (0.1-0.6); Monocytes Percent Auto 7.9 % (2.6-8.5); Neutrophils Absolute Auto 1.4 K/mm3 (1.3-6.7); Neutrophils Percent Auto 50.5 % (45.5-73.1); Platelet Count Result 200 k/mm3 (150-375); Red Blood Count 4.02 M/mm3 (4.6-6.20); Red Cell Distribution Width 13.1 % (11.5-14.5); White Blood Count 2.7 K/mm3 (4.5-10.0)
[2023-07-04 19:36] LABS: Complement C3 122 mg/dL (88-165); Rheumatoid Factor < 12.0 IU/ML (<12)
[2023-07-04 19:49] LABS: CRP 0.7 mg/dL (<1.0); Calcium 9.4 mg/dL (8.4-10.2); Uric Acid 4.9 mg/dL (3.5-8.5)
[2023-07-04 20:04] LABS: Erythrocyte Sedimentation Rate 23 mm/hr (0-20)
[2023-07-05 15:08] LABS: Cyclic Citrullinated Peptide <16 UNITS
[2023-07-06 21:28] LABS: HLA B27 NEGATIVE (NEGATIVE)
== END 2023-07-04 10:14 | disposition home or self-care (01) ==
PROVIDERS: PCP Family Medicine
DX: G89.29 Other chronic pain (principal)
CPT/HCPCS: 36415; 82310; 84550; 85025; 85652; 86038; 86140; 86160; 86200; 86430; 86812

== ENCOUNTER 2024-01-08 14:58 | Outpatient (CLI) | payer BC, MEDICARE, SELFPAY ==
--- NOTE | ~2024-01-08 | XR_ITS ---
XR shoulder RT min 2V 01/08/2024 15:26 Indication: Right shoulder pain Procedure: 5 views right shoulder Comparison: 07/03/2023 Findings: There is deformity of the lesser tuberosity of the humeral head, likely related to prior tr auma or shoulder dislocation. No acute fracture or traumatic malalignment. There is osteoarthritis of the of the glenohumeral joint. Impression: 1: No acute fracture. Reviewed, dictated and finalized at location B. Impression: 1: No acute fracture.
== END 2024-01-08 14:59 | disposition home or self-care (01) ==
PROVIDERS: PCP Family Medicine; Visit Provider Orthopaedic Surgery
DX: M25.511 Pain in right shoulder (principal)
CPT/HCPCS: 73030

== ENCOUNTER 2024-06-03 13:26 | Outpatient (CLI) | payer BC, MEDICARE, SELFPAY ==
--- NOTE | ~2024-06-03 | MR_ITS ---
MRI of the thoracic spine Clinical History: Spinal stenosis Technique: Axial T2-weighted and gradient images, and sagittal T1-weighted, T2-weighted, and STIR higinio ges were acquired. Findings: There is no fracture or sublocation of the thoracic spine. Vertebral bodies maintain normal height and alignment. There is moderate degenerative disc narrowing throughout the thoracic spine. No significant disc bulge or herniation evident at any level. No spinal canal stenosis or cord compre ssion evident. There is bilateral neural foraminal narrowing at T9-T10, T10-T11. There is right neura l foraminal narrowing at T11-T12. There is hyperintense signal within the spinal cord at the T6-T7 level, without definite cord expansi on. Remainder the spinal cord appears unremarkable. Paravertebral soft tissues are unremarkable. Impression: T2 hyperintense signal abnormality involving the spinal cord at the T6-T7 level, without definite cor d expansion. Diagnostic considerations include myelomalacia, transverse myelitis, or possibly underly ing mass. Postcontrast imaging is recommended to further assess for any enhancing lesion at this loca tion. Mild degenerative spondylosis, as above. Reviewed, dictated and finalized at location M. Impression: T2 hyperintense signal abnormality involving the spinal cord at the T6-T7 level , without definite cord expansion. Diagnostic considerations include myelomalac ia, transverse myelitis, or possibly underlying mass. Postcontrast imaging is r ecommended to further assess for any enhancing lesion at this location. Mild degenerative spondylosis, as above.
--- NOTE | ~2024-06-03 | MR_ITS ---
MRI of the cervical spine Clinical History: Cervical pain, spinal stenosis Technique: Axial T2-weighted and gradient images, and sagittal T1-weighted, T2-weighted, and STIR higinio ges were acquired. Findings: There is reversal normal cervical lordosis. There is anterior and interbody fusion at the C 3-C4 level. There is underlying anterolisthesis of C3 over C4 measuring approximately 1 cm. No suspic ious bone marrow signal abnormality seen. No acute fracture seen. At C2-C3, there is mild disc osteophyte complex. There is mild canal stenosis without sindi cord comp ression. Neural foramina are preserved. At C3-C4, there is moderate to severe canal stenosis with mild flattening the cord. There is probable bilateral neural foraminal narrowing. At C4-C5, there is severe degenerative disc narrowing. There is mild to moderate canal stenosis with mild flattening the cord. There is mild right neural foraminal narrowing. Left neural foramen probabl y preserved. At C5-C6, there is moderate degenerative disc narrowing. There is mild disc osteophyte complex with m ild canal stenosis but no sindi cord compression. There is probable mild right neural foraminal narro wing. Left neural foramen but are preserved. At C6-C7, there is moderate degenerative distended. There is disc osteophyte complex with moderate ca nal stenosis but no sindi cord compression. There is bilateral neural foraminal narrowing, left worse than right. No abnormal signal seen in the spinal cord. Paravertebral soft tissues are otherwise unremarkable. Impression: Anterior and interbody fusion at the C3-C4 level, with underlying 1 cm anterolisthesis of C3 over C4. Moderate to advanced degenerative spondylosis, as above, with multilevel canal stenosis and neural fo raminal narrowing. Reviewed, dictated and finalized at [facility]. Impression: Anterior and interbody fusion at the C3-C4 level, with underlying 1 cm anteroli sthesis of C3 over C4. Moderate to advanced degenerative spondylosis, as above, with multilevel canal stenosis and neural foraminal narrowing.
== END 2024-06-03 13:27 | disposition home or self-care (01) ==
LOC: GOSHIMG 13:27
PROVIDERS: PCP Physician Assistant; Visit Provider Physician Assistant
DX: M43.12 Spondylolisthesis, cervical region (principal); M47.814 Spondylosis without myelopathy or radiculopathy, thoracic region; S24.102A Unspecified injury at T2-T6 level of thoracic spinal cord, initial encounter; X58.XXXA Exposure to other specified factors, initial encounter; Z98.1 Arthrodesis status; Z98.890 Other specified postprocedural states
CPT/HCPCS: 72141; 72146

== ENCOUNTER 2024-06-20 12:49 | Outpatient (CLI) | payer BC, MEDICARE, SELFPAY ==
--- NOTE | ~2024-06-20 | CT_ITS ---
EXAMINATION: CT cervical spine wo con DATE: 06/20/2024 13:18 INDICATION: Cervical pain TECHNIQUE: Computed tomography (CT) of the cervical spine was performed without intravenous contrast. Automated exposure control and iterative reconstruction technique were employed. The dose-length pro duct was 260.22 mGy-cm. COMPARISON: None FINDINGS: 15 degrees cervical dextrocurvature. C3-C4 anterior spinal fusion with interbody fusion device and an terior plate-screw fixation. C3 is solidly fused on C4 with an 3 mm anterolisthesis and with mild kyp hosis. The cephalad aspect of the anterior plate is elevated for millimeter from the anterior cortex of the C3 vertebral body and mildly bulges the posterior pharyngeal wall. There is however no lucency surrounding the screws to suggest loosening. There is also fusion across the bilateral C3-C4 facet j oints. There is severe disc height loss at C4-C5 through C6-C7 with associated degenerative endplate changes which is likely responsible for the mild anterior vertebral body height loss at C5. Remaining vertebral body heights are normal. No acute fracture. Mild disc height loss at C7-T1, T1-T2 and mode rate disc height loss at T2-T3. Severe osteoarthritis at the atlantoaxial articulation with surroundi ng calcified pannus which mildly narrows the central canal at the level of the ring of C1. The follow ing disc levels are specifically discussed: C2-C3: Disc is bulging. There is mild bilateral uncovertebral joint osteoarthritis. There is moderate bilateral facet joint osteoarthritis. There is no neural foraminal stenosis. There is mild central c anal stenosis. C3-C4: Disc space and facet joints are fused. There is mild left and moderate right neural foraminal stenosis. There is mild central canal stenosis. C4-C5: Right-sided predominant posterior disc osteophyte complex. There is severe bilateral uncoverte bral joint osteoarthritis. There is moderate bilateral facet joint osteoarthritis. There is mild left and mild to moderate right neural foraminal stenosis. There is mild right-sided predominant central canal stenosis. C5-C6: Right-sided predominant posterior disc osteophyte complex. There is severe bilateral uncoverte bral joint osteoarthritis. There is mild right and moderate left facet joint osteoarthritis. There is mild right neural foraminal stenosis. There is mild right-sided predominant central canal stenosis. C6-C7: Disc is bulging. There is severe bilateral uncovertebral joint osteoarthritis. There is modera te right and severe left facet joint osteoarthritis. There is mild right and mild to moderate left ne ural foraminal stenosis. There is mild central canal stenosis. C7-T1: Disc is mildly bulging. There is mild bilateral uncovertebral joint osteoarthritis. There is m oderate right and moderate to severe left facet joint osteoarthritis. There is mild bilateral neural foraminal stenosis. There is no central canal stenosis. IMPRESSION: 1. Severe cervical spondylosis with posterior and instrumented anterior spinal fusion at L3-L4. Reviewed, dictated and finalized at location A.
--- NOTE | ~2024-06-20 | CT_ITS ---
EXAMINATION: CT thoracic spine wo con DATE: 06/20/2024 13:19 INDICATION: Stenosis, neck and back pain . TECHNIQUE: Computed tomography (CT) of the thoracic spine was performed without intravenous contrast. Automated exposure control and iterative reconstruction technique were employed. The dose-length pro duct was 696.40 mGy-cm. COMPARISON: MR thoracic spine 06/03/2024 FINDINGS: Normal vertebral body alignment. Very mild anterior wedge deformity at multiple levels in t he mid and lower thoracic spine which appear chronic. Moderate disc space narrowing and mild marginal osteophytosis at all levels in the thoracic spine, including small bridging osteophytes. Mild facet arthropathy at all thoracic levels. Mild bilateral neural foraminal narrowing at T9-10 and T10-11. No severe central canal or neural foraminal narrowing. Decreased density blood pool as can be seen with anemia. Mild aortic arch calcification. Coronary artery calcifications. Dilated central pulmonary ar teries as can be seen with pulmonary hypertension. IMPRESSION: Moderate multilevel thoracic spine degenerative disc disease and mild multilevel facet arthropathy. Reviewed, dictated and finalized at location K. IMPRESSION: Moderate multilevel thoracic spine degenerative disc disease and mild multileve l facet arthropathy.
== END 2024-06-20 12:50 | disposition home or self-care (01) ==
LOC: GOSHIMG 12:50
PROVIDERS: PCP Physician Assistant; Visit Provider Physician Assistant
DX: M51.34 Other intervertebral disc degeneration, thoracic region (principal); M47.814 Spondylosis without myelopathy or radiculopathy, thoracic region; M47.812 Spondylosis without myelopathy or radiculopathy, cervical region; Z98.1 Arthrodesis status
CPT/HCPCS: 72125; 72128

== ENCOUNTER 2024-12-02 14:08 | Outpatient (CLI) | payer BC, MEDICARE, SELFPAY ==
--- NOTE | ~2024-12-02 | US_ITS ---
EXAMINATION: US venous doppler [facility], 12/02/2024 14:18 CDT HISTORY: R60.0 - Localized edema COMPARISON: None Technique: Paez-scale and color Doppler images were attempted of the lower saphenofemoral junction, common femoral vein,superficial femoral vein, proximal deep femoral vein, proximal deep femoral vein, popliteal vein and posterior tibial veins. Findings: Deep Venous System:Normal flow, augmentation and compressibility. No echogenic thrombus identified. Superficial Venous SystemNo superficial thrombophlebitis. Soft tissues: Soft tissues are unremarkable. Impression: Negative for DVT. Reviewed, dictated and finalized at location A. Impression: Negative for DVT.
--- OUTSIDE RECORDS SUMMARY | 2024-12-02 17:03 | XMS_ITS | Clinical Summary ---
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 Social History Tobacco Use Types Packs/Day Years Used Date Smoking Tobacco: Never Assessed Sex and Gender Information Value Date Recorded Sex Assigned at Not on file Legal Sex Male 3:16 PM CDT Gender Identity Not on file Sexual Orientation Not on file Plan of Treatment Health Maintenance Due Date Last Done Comments DTAP/TDAP/TD VACCINES (1 - Tdap) 1969 COLORECTAL SCREENING 06/02/1995 Colorectal Cancer Screening 06/02/1995 FIT-DNA Q 3 years 06/02/1995 FIT/FOBT Q 1 year 06/02/1995 Flex Sig/CT Colonography Q 5 years 06/02/1995 PNEUMOCOCCAL VACCINE 50+ YEARS (1 of 1 - PCV) 06/02/19 ZOSTER VACCINE (1 of 2) 2000 INFLUENZA VACCINE (#1) 2024 RSV VACCINE (60+ or ) (1 - 1-dose 75+ series) 2025 Insurance RX [employer] (INTERNAL) [facility] [employer] RX GENERIC [employer]CIAL Commercial [employer] Commercial
--- OUTSIDE RECORDS SUMMARY | 2024-12-02 17:03 | XMS_ITS | Clinical Summary ---
Author Organization [facility] al Address [address] [place] [address] Care Team Providers Care University Relations Vice President Name Role Phone Denny Gaston MD Primary Care Provider [phone] Miscellaneous, Not In File Unavailable Unava ilable Allergies Active Allergy Reactions Criticality Noted Date Comments Gabapentin Dizziness High 01/10/2024 Milk Stomach upset High 01/10/2024 Onion Stomach upset High 01/10/2024 Medications acetaminophen (TYLENOL) 325 mg tabletIndications:P ain Take 2 tablets (650 mg total) by mouth every 4 (four) hours as needed for pain 4 Active baclofen (LIORESAL) 10 mg tablet Take 1 tablet (10 mg total) by mouth 3 (three) times a day with meals . Do not take at the same time as Flexeril. Please alternate 90 tablet 4 Active traMADoL (ULTRAM) 50 mg tabletIndications:P ain Take 1 tablet (50 mg total) by mouth every 6 (six) hours as needed for pain [facility] #[id number] in home 11/07/23 per MANDY Chung added by Niecy Craven, RN 11/08/23 Active diazePAM (VALIUM) 5 mg tabletIndications:a nxiety 4 Active atorvastatin (LIPITOR) 80 mg tabletIndications:h yperlipidemia Take 0.5 tablets (40 mg total) by mouth nightly Active sotaloL (BETAPACE) 120 mg tabletIndications:P revention of Recurrent Atrial Fibrillation Take 0.5 tablets (60 mg total) by mouth 2 (two) times a day Active diltiazem (TIAZAC) 240 mg 24 hr capsule 4 Active aspirin 81 mg enteric coated tabletIndications:C erebral Thromboembolism Prevention TAKE 1 TABLET DAILY 90 tablet 4 Active HYDROcodone-acetami nophen (NORCO) 5-325 mg per tablet 01/17/20 2 4 Active evolocumab 140 mg/mL pen injector Inject under the skin 4 Active modafiniL (PROVIGIL) 200 mg tablet Take 1 tablet (200 mg total) by mouth 4 Active Hospital, Clinic, or Other Facility Administered Medication Ordered Dose Route Frequency Start Date End Date Status lidocaine (XYLOCAINE) 10 mg/mL (1 %) injection 1 mLIndications:Admi nistration of Local Anesthesia 1 mL One-Time Injection 11/19/2024 11/19/2024 Ended lidocaine (XYLOCAINE) 10 mg/mL (1 %) injection 1 mLIndications:Admi nistration of Local Anesthesia 1 mL One-Time Injection 11/19/2024 11/19/2024 Ended methylPREDNISolone acetate (DEPO-medrol) injection 40 mgIndications:Arth ritis of left wrist,Arthritis of right wrist 40 mg intra-artic One-Time Injection 11/19/2024 11/19/2024 Ended methylPREDNISolone acetate (DEPO-medrol) injection 40 mgIndications:Arth ritis of left wrist,Arthritis of right wrist 40 mg intra-artic One-Time Injection 11/19/2024 11/19/2024 Ended Active Problems Problem Noted Date Diagnosed Date Wasting generalized 11/19/2024 Vertigo 11/19/2024 Tinnitus, unspecified ear 11/19/2024 Rotator cuff arthropathy of right shoulder 11/19 Raynauds syndrome 11/19/2024 Pseudogout involving multiple joints 11/19/2024 Prediabetes 11/19/2024 Pre-excitation syndrome 11/19/2024 Overweight (BMI 25.0-29.9) 11/19/2024 Other specified crystal arthropathies, multiple sites 11/19/2024 Orthostasis 11/19/2024 Moderate depressive episode 11/19/2024 Male erectile disorder 11/19/2024 Sensorineural hearing loss, bilateral 11/19/2024 Left knee DJD 11/19/2024 Injury of shoulder 11/19/2024 Hyperlipidemia, unspecified 11/19/2024 Hereditary and idiopathic peripheral neuropathy 11/19/2024 Enlarged prostate without lo wer urinary tract symptoms (luts) 11/19/2024 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 home sotalol, diltiazem held on admission for soft BP. Pcp had also held sotalol for poor appetite? -started on metop tartrate -> consolidated to XL -tele with nsr -EP consulted to see if sotalol needs to be restarted( will need qtc monitoring and EP on board) and recommended to hold off for now and fu with his EP outpt team. No events on tele , hence dcd CAD (coronary artery disease) 09/12/2023 Assessment & Plan (09/23/2023 1:43 PM CDT): S/p CABG 2018. Euvolemic on exam, no cardiac symptoms. - CW ASA, hold home [id number] inpt Chronic pain 09/12/2023 Assessment & Plan (09/14/2023 12:38 PM CDT): - cont duloxetine, PRN muscle relaxants, APAP - reports lyrica causes hallucinations, held Weight loss 09/12/2023 Assessment & Plan (09/26/2023 3:11 PM CDT): Reports 1 year of unintentional weight loss due to poor appetite. Previously evaluated by medicine consults last admit, work up negative. PSA, SPEP wnls, recent c-scope reassuring. CT A/P w/o malignancy, shows sacral ulcer w OM. -TSH, B12 wnls -RD consulted -mirtazapine Weakness 09/12/2023 Assessment & Plan (09/26/2023 3:11 PM CDT): Progressive since 03/2022. S/p lumbar fusion 2013 and C3-4 ACDF w NSGY 07/20/23. bMRI 06/2023 w/o explanation. Has residual severe L3-L4 stenosis on whole spine MRI 06/2023. Follows w NSGY, they noted LE weakness prior to discharge after cervical surgery in 07/2023. Etiology unclear, c/f deconditioning +/- spine dx. --NSGY consulted, rec [place] J collar when neck is not supported - ct ordered by neuro sx for abn xr- with new changes since prior sx- discussed with neurosx- Plan for surgical reassessment in 6 weeks as outpt . ID consulted -see note reg hardware --recontacted orthotics due to discomfort with brace who adjusted brace . --PT/OT rec SNF, referrals sent but family would like to go home with HH now . Setting up home wound vac and HH Constipation 09/12/2023 Assessment & Plan (09/25/2023 11:18 AM CDT): Fecal ball on CT. Stooling - multiple BM 09/21 hence changed to prn -bowel regimen Pressure injury of skin of s acral region, unspecified injury stage 09/11/2023 Assessment & Plan (11/07/2023 11:03 AM CDT): -Patient presents to clinic for a post hospital visit. He has completed 6 weeks of Augmentin and Bactrim for the treatment of an MRSA , Bacteroides and mixed aerobic/anaerobic organisms sacral ulcer with osteomyelitis. -Patient wearing wound VAC today unable to assess the wound. -We will ask home health to send us a photo with next wound VAC change. -We will repeat labs today including inflammatory markers -We can stop antibiotics today pending labs and photo from home health - Discussed with patient the rational for treatment, culture results, risk of recurrent infection, signs/symptoms of recurrent infection, and to contact ID clinic with any questions or concerns. Assessment & Plan (09/26/2023 3:10 PM CDT): New sacral ulcer without systemic symptoms. Etiology likely secondary to bedridden status after surgical spine surgery. ACCS consulted status post debridement. Cultures pending. ID consulted. Was being treated at facility with Cipro prior to admission. CT scan showing evidence of infection with possible osteomyelitis - consult ID, rec 6 wk of augmentin BID + DS bactrim BID (EOT 10/25) - surgery rec wound care consult and plan to follow up in clinic. At this point would eval for possible flap. They think it is unlikely to heal on its own -wound care consult -updated 09/18 -recommends wound vac - placed inpatient 09/21 by wound nurse, send for approval to [facility]- [facility] with dr Key ( discussed with ACCS fellow on phone ) -waiting insurance approval for wound vac , home health SOC 09/28, and need to have wound vac changed inpatient on Monday prior to dc. -nutrition consult Right shoulder pain 07/16/2023 Assessment & Plan (07/16/2023 5:40 PM CDT): Patient with the inability to raise his shoulder past 90 . He fell about 1 month ago with a negative x-ray. Resisted abduction and flexion of the shoulder results in exquisite pain. - discussed with neurosurgery and recommend outpatient follow-up with Orthopedics Sacroiliac joint pain 07/16/2023 Assessment & Plan (07/16/2023 5:47 PM CDT): Patient with diagnosis of sacroiliitis. He follows with Dr. Ernst at [facility]. He reports that approximately 1 year ago he fell on his coccyx; within the month he started to develop severe low back pain and was found to have bilateral sacroiliitis. He has undergone injections; injections were helpful for about 4-5 days for the 1st time, but the pain returned and subsequent injections He has yet to find any medicine that will work for his pain. They discussed a revision surgery as well as a dorsal column stimulator trial and patient was interested in the dorsal column stimulator. - needs close follow-up with pain management and possible discussion of revision surgery versus dorsal column stimulator as an outpatient. This is one piece to improving his nutrition status. Pre-operative exam 07/13/2023 Assessment & Plan (07/16/2023 5:41 PM CDT): - His main medical risk factors for surgical complications are prior ischemic cardiac history and his current frailty. He denies any cardiopulmonary symptoms and has been able to achieve > 4 METS since his CABG, now limited by pain. EKG without acute findings - RCRI is 1 (prior ischemic disease) Recommend: - No additional cardiac evaluation indicated prior to proceeding with surgery. No further cardiopulmonary optimization measures recommend - Please notify Medicine for any RHONDA, even mild, as sotalol is renally cleared and can be pro-arrhythmic if not adjusted - the only additional optimization necessary is patient's nutrition status; will defer to Neurosurgery for the timing on procedure based on his nutrition Esophagitis 07/13/2023 Assessment & Plan (07/14/2023 1:13 PM CDT): - Thoracic esophagitis seen on CT w con. Patient denies GERD, dysphagia, odynophagia. Did have emesis yesterday, which is uncommon for him Recommend: - Daily pantoprazole 40mg for 4 weeks Cervical stenosis of spinal canal 07/11/2023 Pancytopenia 07/08/2023 Assessment & Plan (07/16/2023 5:42 PM CDT): - He had mild pancytopenia on arrival to [facility]. He previously has had mild leukopenia. Pancytopenia as resolved spontaneously. LDH was slightly elevated. Immunoglobulin light chains negative. Peripheral smear did not show blasts or schistocytes, does have meryl cells. Unlikely to have severe hematologic abnormality given resolution of pancytopenia. Malnutrition with vitamin/folate def is likely contributing Recommend: - Supplements as above - SPEP negative for paraproteins. - given cell counts within normal limits no additional workup needed Assessment & Plan (07/11/2023 11:13 AM CDT): WBC & Plts now normal. Mild anemia. - B12 and iron wnl, ferritin 533, folate low - started folate supplement - monitor CBC Protein-calorie malnutrition, severe 07/07/2023 Assessment & Plan (07/10/2023 9:34 AM CDT): - start mirtazapine, uptitrate as needed - Consulted RD, supplements ordered Cervical myelopathy 07/07/2023 Assessment & Plan (07/11/2023 11:13 AM CDT): MRI shows c3-c4 severe spinal canal stenosis with compression of the cervical spinal cord with associated myelopathic cord signal abnormality. - likely cause of weakness, n/t noted by patient - initial plan per NSGY was for outpt f/u in 1-2 weeks. Chart reviewed by outpt NSGY Dr. Quiñonez on 07/09, recommended transfer to [facility] or [facility] for urgent NSGY evaluation. Pt accepted to [facility] NSGY Dr. Huerta on 07/10, awaiting bed - ct cervical spine and lumbar xr completed to expedite NSGY f/u - PT/OT recommend DC to SNF, CM/SW aware however plan to transfer to higher level of care for NSGY eval - pain control as below - continue to monitor symptoms closely, no significant changes Failure to thrive in adult 07/07/2023 Assessment & Plan (07/17/2023 2:28 PM CDT): Progressive weakness, weight loss, and frailty over the course of > 1 year and in setting of severe chronic pain and myelopathy. Patient feels that loss of taste and severe pain are significant contributors. Prior COVID but no loss of taste then. Zinc def can be cause of dysgeusia though unclear if this followed his malnutrition. No clear evidence of solid organ disease, endocrinopathy, systemic inflammatory process, GI abnormalities apart from esophagitis, malabsorption, chronic infection, psychiatric disorder with present data and history. His prior pancytopenia is his most abnormal lab finding though now resolved. CT C/A/P w contrast did not reveal malignancy, and recent PSA and cscope were negative as well. Likely that patient lost weight, zinc deficient, this worsened taste sensation, and patient continued to lose weight even more with poor taste Recommend: - will follow up pending nutritional labs - Continue folate supplement, Zinc 220mg PO daily, multivitamin, 50,000 units Vitamin D weekly - Continue IV thiamine 500mg daily x 3 days, then PO thiamine 100mg daily x 14 days - Continue mirtazapine for appetite. If unsuccessful would consider discontinuing and using olanzapine 2.5mg daily - RD consult Assessment & Plan (07/10/2023 9:36 AM CDT): Weakness is likely due to cervical myelopathy noted on imaging today, but cause of recent weight loss, memory loss still unclear at this point. - tsh, b12, hiv, rpr, psa negative. Iron WNL. - folate and vit d low, ordered supplements - zinc, copper pending - rd consulted as above - pt/ot as above - recommend further work up OP Weakness 07/06/2023 Assessment & Plan (07/10/2023 9:33 AM CDT): Gradual decline over time but more rapid deterioration over past few months. Generalized weakness but does have some more focal weakness on L-side, difficult to localize based on exam however. Chronic pain also contributing. Also with severe malnutrition & FTT, may consider underlying malignancy. CT head, L-spine unrevealing. - brain MRI negative for acute findings. - MRI with cervical myelopathy, likely contributing to weakness - HIV, TSH, RPR, B12 all within normal limits - PSA wnl - PT/OT, pt agreeable to snf. SW following. - nutrition supplements No diagnosis on [place] I 11/18/2022 Arthritis of left wrist 03/27/2020 Overview (03/27/2020): Added automatically from request for surgery [id number] SVT (supraventricular tachycardia) 12/29/2019 Assessment & Plan (07/06/2023 5:52 PM CDT): S/p ablation 2019. - sotalol, diltiazem Assessment & Plan (04/27/2022 1:26 PM PALLIATIVE MEDICINE PHYSICIAN): Post ablation right atrial tachycardia, without reported recurrence. We will continue to monitor for the development of new atrial arrhythmia. The patient will follow-up with me in 12 months for an office visit and twelve- lead ECG. Assessment & Plan (03/14/2021 12:24 PM PALLIATIVE MEDICINE PHYSICIAN): Status post catheter ablation of right atrial tachycardia, without recurrence of sustained arrhythmia. We will continue to monitor and follow closely, and manage new / recurrent arrhythmia expectantly. Assessment & Plan (03/06/2020 3:14 PM PALLIATIVE MEDICINE PHYSICIAN): The patient is status post catheter ablation for right atrial tachycardia. He states that he has not experienced sustained runs of tachycardia since the ablation. Assessment & Plan (12/29/2019 1:23 PM CDT): The patient has symptomatic supraventricular tachycardia. Multiple events were associated with symptoms during his recent event monitor. We discussed options for management, and the patient would like to undergo catheter ablation. I described the risks and benefits of ablation for catheter ablation, and we will make the appropriate arrangements. Previously, the patient had an EP study for SVT, during which substrate for reentrant tachycardia was not available. We will repeat this study, though it is possible that his diagnosis is atrial tachycardia/flutter. If multiple tachycardias are inducible, we may pursue a strategy of pulmonary vein isolation (for a diagnosis of paroxysmal atrial fibrillation resistant to sotalol). 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 We will continue the patient on the same dose and schedule. As long as the patient continues on this medication, an ECG should be performed at least every 6 months to monitor for toxicity. PVC (premature ventricular contraction) 04/22/19 Assessment & Plan (04/27/2022 1:26 PM PALLIATIVE MEDICINE PHYSICIAN): Symptomatic ventricular ectopy, presently well suppressed with sotalol. 12-lead ECG today does not demonstrate any changes that would prohibit continued use of sotalol. We will continue the patient on the same dose and schedule. As long as the patient continues on this medication, an ECG should be performed at least every 6 months to monitor for toxicity. Assessment & Plan (03/14/2021 12:25 PM PALLIATIVE MEDICINE PHYSICIAN): The patient has ventricular ectopy that is only mildly symptomatic. His symptoms are improved with pharmacologic therapy. We will continue diltiazem and sotalol. 12-lead ECG today does not demonstrate any changes that would prohibit continued use of sotalol. We will continue the patient on the same dose and schedule. As long as the patient continues on this medication, an ECG should be performed at least every 6 months to monitor for toxicity. Assessment & Plan (03/06/2020 3:15 PM PALLIATIVE MEDICINE PHYSICIAN): He continues to experience brief, solitary palpitations that were previously found to be associated with ventricular ectopy. As this arrhythmia was not treated during his ablation, feel it is somewhat likely that he is experiencing ongoing PVCs. I recommended that he initiate diltiazem in addition to his sotalol, in an attempt to pharmacologically suppressed his ventricular ectopy. I asked the patient to contact me in several weeks to let me know if he has experienced improvement. We will plan a follow-up visit in 6 months, or earlier if necessary. Assessment & Plan (12/29/2019 1:14 PM CDT): Symptomatic idiopathic ventricular ectopy. It appears that the bulk of his symptoms were related to SVT and not intermittent PVCs. For now, we will continue sotalol therapy and re-evaluate his symptoms after ablation of his SVT. Assessment & Plan (06/26/2019 12:44 PM CDT): The patient has symptomatic ventricular ectopy. His overall PVC burden has decreased from 6% to 2% with sotalol. The patient has noticed some improvement in his symptoms. We discussed options for management. He would like to increase his dose of sotalol to 60 mg twice daily. Thus far, we have not seen evidence of QT prolongation. I recommended that he have a 12 lead ECG performed 3 doses later, as well as 1 week after assuming the new dose. I will plan on seeing patient in follow-up in 3 months. Assessment & Plan (05/17/2019 4:32 PM PALLIATIVE MEDICINE PHYSICIAN): The patient has symptomatic ventricular ectopy with an overall burden of 6%, as detected by his recent event recorder. We discussed options for management. I recommended that the patient discontinue atenolol, and initiate therapy with low dose sotalol (40 mg twice daily). After 2-3 doses, we will obtain an ECG, in order to ensure that the patient is tolerating this medication without excessive QT prolongation. If the medication is tolerated, we will likely advance the dose (to a target of 120 mg) and repeat an ECG again after several doses. He is on Cymbalta, but we will continue this medication as I will plan on following his QT interval closely and limit his sotalol to low doses. I do not have a surface ECG showing his PVC morphology, so a have no data regarding anatomic location. Ablation can potentially be considered if the patient's arrhythmia is refractory to sotalol. Aftercare following surgery of the circulatory s ystem 02/26/2019 Atrial tachycardia 02/18/2019 Hx of CABG 02/18/2019 Coronary artery disease invo l[facility] [place] coronary artery of [place] heart without angina pectoris 01/15/2019 Assessment & Plan (07/06/2023 6:31 PM CDT): S/p CABG 2018. Euvolemic on exam, no cardiac symptoms. - cont ASA - on Repatha Other chest pain 01/07/2019 Essential hypertension 01/07/2019 Palpitations 01/07/2019 Facet arthropathy, cervical 01/26/2018 Cervical radiculopathy 10/05/2017 Wrist pain 06/27/2017 Osteoarthritis of lumbar spine 03/15/2016 Stenosis of intervertebral foramina 02/05/2016 Lumbar radiculopathy 02/05/2016 Arthritis 01/22/2016 Pain of thigh 01/22/2016 Chronic pain 01/22/2016 Assessment & Plan (07/10/2023 9:32 AM CDT): MRI shows severe spinal canal stenosis with nerve impingement at L2 and L3 - cont duloxetine, PRN muscle relaxants, APAP - cont prednisone 40 mg daily x5d - continue lyrica, consider increasing dose if pain uncontrolled 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 coronary artery of [place] heart with unstable angina pectoris 01/15/2019 09/14/2020 Overview (01/15/2019): Added automatically from request for surgery [id number] Abnormal stress test 01/07/2019 020 Encounters Date Type Department Care Team Description 11/19/2024 2:10 PM CDT Office Visit [facility] Orthopa[facility] Surgery [address] [place] [address] [place] [address] Shun Blevins MD Arthritis of left wrist (Primary Dx); Arthritis of right wrist 10/17/2024 1:00 PM CDT Therapy [facility] Otolaryngology [address] [place] [address] Office [address] [address] Jo Juarez, CASSIE Dysphonia (Primary Dx) 09/06/2024 10:00 AM CDT Therapy [facility] Otolaryngology [address] [place] [address] Office [address] [address] Zayda Foss, CASSIE Dysphonia (Primary Dx); Dysphagia, unspecified type 09/06/2024 10:00 AM CDT Office Visit [facility] E[facility] [address] [place] [address] Office [address] [address] Jaziel Doyle MD Cervical pain (Primary Dx); Dysphagia, unspecified type; Dysphonia; Muscle tension dysphonia from Last 3 Months Immunizations Immunization Administration Dates Next Due Influenza, Quadrivalent, Hig h Dose, Preservative Free, Intrr 12/02/2021 Influenza, Quadrivalent, Rec ombinant, Egg Free, Preservative Free, Intramuscular 02/17/2021,12/24/2018 Influenza, Unspecified 12/26/2018 Pneumococcal Polysaccharide PPV23 01/28/2021 TD Preservative Free 01/28/2021 ZOSTER Recombinant 04/02/2021,01/21/2021 Surgical History Surgery Date Site/Laterality Comments LUMBAR FUSION 03/20/2014 - 03/19/2015 [facility], Dr. Denny Solis, L4-S1 spinal fusion with partial laminectomies REPLACEMENT TOTAL KNEE 03/20/2000 - 03/19/2001 Right ROTATOR CUFF REPAIR Bilateral PENILE PROSTHESIS IMPLANT CORONARY ARTERY BYPASS GRAFT 01/23/2019 x 4 ANGIOPLASTY KNEE ARTHROSCOPY W/ LATERAL RELEASE JOINT REPLACEMENT SPINE SURGERY Medical History Medical History Date Comments Hyperlipidemia Acid indigestion Anxiety Sleep apnea Tobacco abuse, in remission Twen ty pack years discontinued 1986 Duodenal ulcer Diagnosed in [facility], no recurrent Osteoarthritis of both knees Degenerative joint disease ( DJD) of lumbar spine Chronic low back pain Spinal stenosis of lumbar re gion with neurogenic claudication Depression Arrhythmia Hypertension Alcohol abuse Heart disease Sleep difficulties Dizziness HL (hearing loss) 20 yrs Tinnitus Alcoholism (HCC) Family History Medical History Relation Name Comments Allergy (severe) Brother 2 Eran Arthritis Brother 2 Eran Cancer Brother 2 Eran Kidney disease Brother 2 Eran Arthritis Brother 3 Eran Cancer Brother 3 Eran Kidney disease Brother 3 Eran Diabetes Father Eran Clotting disorder Mother Michelle Asthma Sister 2 Lexie Hypertension Sister 2 Lexie Asthma Sister 3 Lexie Hypertension Sister 3 Lexie Relation Name Status Comments Brother 1 Alive Brother 2 Eran Brother 3 Eran Alive Father Eran Mother Michelle Alive Sister 1 Alive Sister 2 Lexie Sister 3 Lexie Alive Sister 4 Alla Alive Social History Tobacco Use Types Packs/Day Years Used Date Smoking Tobacco: Former Cigarettes 0.5 20 0 03/20/1966 - 03/20/1986 Smokeless Tobacco: Former Tobacco Cessation:Counseling Given: No Alcohol Use Standard Drinks/Week Comments Not Currently 0 (1 standard drink = 0.6 oz pur e alcohol) none for 33 years OASIS D0700: Social Isolation Answer Da te Recorded Frequency of experiencing loneliness or isolatio n Never 07/11/2024 OASIS A1250: Transportation Answer Date Recorded Lack of Transportation (Medical) No 07/11/2024 Lack of Transportation (Non-Medical) No 07/11/2024 Patient Unable or Declines to Respond No 07/11/2024 OASIS B1300: Health Literacy Answer Ruslan e Recorded Frequency of needing help to read materials from doctor or pharmacy Sometimes 07/11/2024 [facility] Utilities Answer Date Recorded In the past 12 months has e [employer], gas, oil, or water [employer] threatened to shut off services in your home? No 09/28/2023 Social Connection and Isolation Panel Answer Date Recorded In a typical week, how many times do you talk on the phone with family, friends, or neighbors? More than three times a week 09/28/2023 How often do you get togethe r with friends or relatives? More than three times a week 09/28/2023 How often do you attend chur ch or restorationism services? More than 4 times per year 09/28/2023 Do you belong to any clubs o r organizations such as anabaptist groups, unions, fraternal or athletic groups, or school groups? No 09/28/2023 How often do you attend meet ings of the clubs or organizations you belong to? Never 09/28/2023 Are you , , di vorced, , never , or living with a partner? 09/28/2023 AUDIT-C Answer Date Recorded Q1: How often do you have a drink containing alc ohol? Never 07/09/2024 Average Number of Drinks Not on file 025 Frequency of Binge Drinking Not on file 06/19 Overall Financial Resource Strain (CARDIA) Answe r Date Recorded How hard is it for you to pa y for the very basics like food, housing, medical care, and heating? Not hard at all 09/28/2023 PHQ-2 Answer Date Recorded PHQ-2 Total Score 1 09/22/2023 Hunger Vital Sign Answer Date Recorded Within the past 12 months, y ou worried that your food would run out before you got the money to buy more. Never true 07/10/19 25 Within the past 12 months, t he food you bought just didn't last and you didn't have money to get more. Never true 07/09/2024 PRAPARE - Transportation Answer Date Re corded In the past 12 months, has l ack of transportation kept you from medical appointments or from getting medications? No 09/17 In the past 12 months, has l ack of transportation kept you from meetings, work, or from getting things needed for daily living? No 09/28/2023 Housing Stability Vital Sign Answer Ruslan e Recorded In the last 12 months, was t here a time when you were not able to pay the mortgage or rent on time? No 09/28/2023 In the past 12 months, how m any times have you moved where you were living? 0 09/28/2023 At any time in the past 12 m [facility], were you homeless or living in a penitentiary (including now)? No 09/28/2023 Personal Safety Answer Date Recorded Have you ever been in or are you currently in a harmful physical or emotional relationship or is someone making you feel afraid or unsafe? Denies 09/12/2023 Sex and Gender Information Value Date Recorded Sex Assigned at Not on file Legal Sex Male 6:10 AM PALLIATIVE MEDICINE PHYSICIAN Gender Identity Male 03/05/2019 8:51 PM PALLIATIVE MEDICINE PHYSICIAN Sexual Orientation Straight 03/05/2019 8: 51 PM PALLIATIVE MEDICINE PHYSICIAN Occupation Industry Job Start Date Job End Date Retired Not on file Not on file Not on file Obstetrics History Last Filed Vital Signs Vital Sign Reading Time Taken Comments Blood Pressure 128/70 07/11/2024 10:00 AM CDT Pulse 80 07/11/2024 10:00 AM CDT Temperature 36.4 C (97.6 F) 07/11/2024 10:00 AM CDT Respiratory Rate 18 07/11/2024 10:00 AM CDT Oxygen Saturation 99% 07/11/2024 10:00 AM CDT Inhaled Oxygen Concentration - - Weight 74.8 kg (165 lb) 11/19/2024 4:02 PM CDT Height 175.3 cm (5' 9) 11/19/2024 4:02 PM CDT Body Mass Index 24.37 11/19/2024 4:02 PM CDT Plan of Treatment Health Maintenance Due Date Last Done Comments Colon Cancer Screening-Colonoscopy 1950 Hepatitis B Screening 1968 Well Visit 65+ 06/02/2015 DTaP/Tdap/Td Vaccine (1 - Tdap) 01/29/2021 Depression Screening 09/09/2024 09/10/2023 Fall Risk Assessment 09/26/2024 09/27/2023, 05/05/2023, 10/11/2022, Additional history exists Covid-19 Vaccine (6 - 2024-2 6 season) 2024 12/02/2021, 12/02/2021, 07/08/2021, Additional history exists Influenza Vaccine (#1) 2024 , 12/02/2021, 02/17/2021, Additional history exists Prostate Cancer Screening-PSA 07/06/2025 07/07/2023 Pneumococcal vaccine 65+ Completed 01/28/2021, 07/19 Zoster Vaccine Completed 04/02/2021, 01/21/2021 Hepatitis C Screening Completed 07/07/2023 Abdominal Aortic Aneurysm (A AA) Screen Completed 09/11/2023, 07/13/2023 Goals Goal Patient Goal Type Associated Problems Recent Progress Patient-Stated? Author CCM Chronic Pain Care Plan Chronic Care Management No Ketty Lyle RN Note: Problem: Chronic Pain Goals: 1. Minimize further functional decline 2. Maximize quality of life 3. Control pain Strategies: - Activity/exercise program recommendation - Conservative stepwise pain medicine strategy with multi-disciplinary approach - Recommend healthy lifestyle strategies and compensatory methods as needed Reduce the likelihood of falling Lifestyle Ketty Babin RN Note: Below are four things you can do to prevent falls: Begin an exercise program to improve your leg strength & balance Ask your doctor or pharmacist to review your medicines Get annual eye check-ups & update your eyeglasses Make your home safer by: Removing clutter & tripping hazards Putting railings on all stairs & adding grab bars in the bathroom Having good lighting, especially on stairs Contact your local community or senior center for information on exercise, fall prevention programs, or options for improving home safety. Medical Devices Implanted Type Area Animal Care Taker Device Identifier Shelf Expiration Date Model / Serial / Lot [employer] [id number] System 6-12fr Mvp Venous Closure Vascade - [id number] - [id number] Implanted:Qty: 1 on 01/07/2020 by Fredo Jefferson MD at [facility] Collagen [employer] 10/28/2021 [id number] [id number] / [id number] / [id number] [employer] [id number] System 6-12fr Mvp Venous Closure Vascade - [id number] - [id number] Implanted:Qty: 1 on 01/07/2020 by Fredo Jefferson MD at [facility] Collagen [employer] 10/28/2021 [id number]- 10U / [id number] / [id number] [employer] [id number] Vascade 6/7fr Bioabsorbable Vascular System Compression Collagen - [id number] - [id number] Implanted:Qty: 1 on 01/07/2020 by Fredo Jefferson MD at [facility] Collagen [employer] 08/13/2021 [id number]- 05U / [id number] / [id number] [employer] [id number] Device Closure Vascade Od5 Fr Femoral Artery - [id number] - [id number] Implanted:Qty: 1 on 01/07/2020 by Fredo Jefferson MD at [facility] Collagen [employer] 10/07/2021 [id number] -[id number] / [id number] / [id number] [employer] Graft Bone Magnetos 2.5cc 1-2mm Granules In Moldable Putty [id number] - [id number] Implanted:Qty: 1 on 07/20/2023 by Jorge Huerta MD at [facility] N/A: Spine Cervical [employer] 02/17/2027 [id number] S / / [employer] Cage Spinal Cervical 7 Degree Acif Hedron [id number] Titanium Porous 1211.5819s - [id number] Implanted:Qty: 1 on 07/20/2023 by Jorge Huerta MD at [facility] N/A: Spine Cervical [employer] [id number] 10/07/2031 1211.5819 S / / [id number] [employer] Screw Spinal Anterior Cervical Self Drilling Solid Acp 3.5x19mm [id number] - [id number] Implanted:Qty: 4 on 07/20/2023 by Jorge Huerta MD at [facility] N/A: Spine Cervical [employer] [id number] / / [employer] Plate Spine Anterior Cervical Level 1 1.9h Acp 20mm Titanium [id number] - [id number] Implanted:Qty: 1 on 07/20/2023 by Jorge Huerta MD at [facility] N/A: Spine Cervical [employer] [id number] / / Procedures Procedure Name Priority Date/Time Associated Diagnosis Comments PA ARTHROCENTESIS ASPIR&/INJ INTERM JT/BURS W/O US Routine 11/19/2024 2:10 PM CDT 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 CT ABDOMEN PELVIS W CONTRAST ED 09/11/2023 2:14 AM CDT HEPATITIS C ANTIBODY Routine 07/07/2023 4:08 AM CDT PSA DIAGNOSTIC Routine 07/07/2023 4:08 AM CDT from Last 3 Months or Most Recently Relevant to Health Maintenance Results * PA ARTHROCENTESIS ASPIR&/INJ INTERM JT/BURS W/O US (11/19/2024 2:10 PM CDT) Narrative Shun Blevins MD - 11/19/2024 2:10 PM CDT Shun Blevins MD 11/19/2024 5:15 PM Medium Joint Injection: bilateral radiocarpal Performed by: Shun Blevins MD Authorized by: Shun Blevins MD Medium Joint Injection/Aspiration: Consent Given by: Patient Timeout: prior to procedure the correct patient, procedure, and site was verified Verbal consent obtained?: Yes Supporting Documentation: Indications: Pain Procedure Details: Location: Wrist Site: Bilateral radiocarpal Approach: Dorsal Medications Right Medium Joint Injection: 1 mL lidocaine 10 mg/mL (1 %); 40 mg methylPREDNISolone acetate 40 mg/mL Medications Left Medium Joint Inection: 1 mL lidocaine 10 mg/mL (1 %); 40 mg methylPREDNISolone acetate 40 mg/mL Patient tolerance: Patient tolerated the procedure well with no immediate complications us Shun Blevins MD IN CLINIC/BEDSIDE ORDERABLES Final Result * CT Abdomen Pelvis W Contrast (09/11/2023 2:14 AM CDT) Anatomical Region Laterality Modality Body N/A Computed Tomogra phy 09/11/2023 2:34 AM CDT Impressions 09/11/2023 7:57 AM CDT 1. A new soft tissue defect overlying the sacrum is associated with cortical erosions in the subjacent sacrum, foci of intramedullary gas and foci of soft tissue gas, which are highly concerning for soft tissue infection and underlying osteomyelitis. Of note, this soft tissue stranding appears to extend to from the soft tissue stranding surrounding the rectum. Given the proximity, communication between the rectal tissue and decubitus ulcer cannot be excluded based on this imaging. 2. Mild thickening of the bladder wall could represent urinary tract infection. Correlate with urinalysis once available. 3. A rectal stool ball with associated rectal wall thickening and adjacent soft tissue is likely secondary to extension of soft tissue infection from adjacent decubitus ulcer. Dictated by: Lexie Robles MD The radiology attending physician has personally reviewed this study, and had reviewed and/or edited this written report and agrees with it. Electronically signed by: Uriel Walton M.D. Narrative 09/11/2023 7:57 AM CDT EXAMINATION: Computed tomography of the abdomen and pelvis with intravenous contrast HISTORY: 73-year-old male w/ past medical history notable for HLD, anxiety, depression, HTN, CABG, and spine surgery who presents via EMS from SNF with concern for sacral wound. TECHNIQUE: Transaxial computed tomographic images of the abdomen and pelvis were obtained with intravenous contrast according to the standard protocol after the uneventful administration of 70 mL Opti-Ray 350 intravenous contrast. COMPARISON: CT chest abdomen pelvis from 07/13/2023 FINDINGS: Lung bases are clear. Heart size is normal. No pericardial effusion. Post surgical changes of median sternotomy. High density contrast material is seen throughout the colon,. No suspicious hepatic lesions. No intra or extrahepatic biliary ductal dilatation. Portal and superior mesenteric veins are patent. The gallbladder, pancreas, spleen and adrenal glands are normal. The kidneys enhance symmetrically without hydronephrosis or nephrolithiasis. The urinary bladder is thick-walled with mild adjacent soft tissue stranding. No evidence of bowel obstruction. A penile prosthesis is seen with reservoir in the right lower quadrant. This is unchanged from prior imaging. Stool is seen throughout the rectum. There is increased, mild thickening of the rectal wall with adjacent soft tissue stranding. There is a new skin defect overlying the sacrum with associated soft tissue stranding. The posterior sacrum closely abuts the skin at this level (series 2, image 155) with likely exposure of bone. There is erosion of the cortex and a focus of air within the bone, both of which are highly concerning for underlying osteomyelitis. Locules of air track inferiorly to an area of soft tissue stranding that appears contiguous with the soft tissue stranding surrounding the rectum. Again seen is lower lumbar instrumented spinal fusion with bilateral iliac wing screws. There are atherosclerotic calcifications of the abdominal aorta. The proximal celiac and superior mesenteric arteries are patent. Procedure Note Uriel Walton MD - 09/11/2023 EXAMINATION: Computed tomography of the abdomen and pelvis with intravenous contrast HISTORY: 73-year-old male w/ past medical history notable for HLD, anxiety, depression, HTN, CABG, and spine surgery who presents via EMS from SNF with concern for sacral wound. TECHNIQUE: Transaxial computed tomographic images of the abdomen and pelvis were obtained with intravenous contrast according to the standard protocol after the uneventful administration of 70 mL Opti-Ray 350 intravenous contrast. COMPARISON: CT chest abdomen pelvis from 07/13/2023 FINDINGS: Lung bases are clear. Heart size is normal. No pericardial effusion. Post surgical changes of median sternotomy. High density contrast material is seen throughout the colon,. No suspicious hepatic lesions. No intra or extrahepatic biliary ductal dilatation. Portal and superior mesenteric veins are patent. The gallbladder, pancreas, spleen and adrenal glands are normal. The kidneys enhance symmetrically without hydronephrosis or nephrolithiasis. The urinary bladder is thick-walled with mild adjacent soft tissue stranding. No evidence of bowel obstruction. A penile prosthesis is seen with reservoir in the right lower quadrant. This is unchanged from prior imaging. Stool is seen throughout the rectum. There is increased, mild thickening of the rectal wall with adjacent soft tissue stranding. There is a new skin defect overlying the sacrum with associated soft tissue stranding. The posterior sacrum closely abuts the skin at this level (series 2, image 155) with likely exposure of bone. There is erosion of the cortex and a focus of air within the bone, both of which are highly concerning for underlying osteomyelitis. Locules of air track inferiorly to an area of soft tissue stranding that appears contiguous with the soft tissue stranding surrounding the rectum. Again seen is lower lumbar instrumented spinal fusion with bilateral iliac wing screws. There are atherosclerotic calcifications of the abdominal aorta. The proximal celiac and superior mesenteric arteries are patent. IMPRESSION: 1. A new soft tissue defect overlying the sacrum is associated with cortical erosions in the subjacent sacrum, foci of intramedullary gas and foci of soft tissue gas, which are highly concerning for soft tissue infection and underlying osteomyelitis. Of note, this soft tissue stranding appears to extend to from the soft tissue stranding surrounding the rectum. Given the proximity, communication between the rectal tissue and decubitus ulcer cannot be excluded based on this imaging. 2. Mild thickening of the bladder wall could represent urinary tract infection. Correlate with urinalysis once available. 3. A rectal stool ball with associated rectal wall thickening and adjacent soft tissue is likely secondary to extension of soft tissue infection from adjacent decubitus ulcer. Dictated by: Lexie Robles MD The radiology attending physician has personally reviewed this study, and had reviewed and/or edited this written report and agrees with it. Electronically signed by: Uriel Walton M.D. Neftaly Carcamo MD IM CT PROCEDURES Fin al Result * Hepatitis C antibody Blood (07/07/2023 4:08 AM CDT) Hep C Ab Nonreactive Nonreactive Comment: Interpretive Data Nonreactive: Antibodies to HCV not detected. Does NOT exclude the possibility of recent exposure to HCV. Equivocal: Equivocal for HCV antibodies. Supplemental molecular testing will be automatically performed to determine infection status in accordance with current CDC screening recommendations. Reactive: Positive for HCV antibodies. This may represent current or past HCV infection. Supplemental molecular testing will be automatically performed to determine current infection status in accordance with current CDC screening recommendations. Interpretive data was last revised on 2019. Testing performed by: [facility], [facility], [place]., [address] Blood 07/07/2023 4:08 AM CDT 07/07/2023 7:53 AM CDT Angy He MD LAB MICROBIOLOGY - GENERAL ORDER DANE Edited Result - Final Performing Organization Address [facility] de Phone Number RAHDA [facility] [address] [address] [address] * PSA diagnostic (07/07/2023 4:08 AM CDT) PSA-Total 1.18 <=6.20 ng/mL Comment: Interpretive Data AGE SEX REFERENCE INTERVAL 0 minutes-150 years Female None 0 minutes-49 years Male None 50-59 years Male 0-3.90 60-69 years Male 0-5.40 70-79 years Male 0-6.20 80-150 years Male 0-6.20 The Kehinde PSA Total assay procedure was used. Results from different manufacturers or methods may not be comparable. Serial testing should be performed using the same method. Current interpretive data last revised 21. Blood 07/07/2023 4:08 AM CDT 07/07/2023 4:15 AM CDT Angy He MD LAB BLOOD ORDERABLES Final Resul t Performing Organization Address [facility] Co de Phone Number RADHA [facility] [address] [place] [address] from Last 3 Months or Most Recently Relevant to Health Maintenance Insurance MEDICARE [facility] Member Subscriber Plan / Payer ( fective 2018-Present) Name:Roland Wolfe Relation to Subscriber:Self Name:Roland Wolfe Payer ID:[id number] Group ID:Not on file Type:[employer] Address: [facility] [address] [place] [address] ANTH ACCESS CHOICE [facility] Address: [facility] [address] [place] [address] MEDICARE AARP ANTHEM ACCESS CHOICE ANTHEM ACCESS CHOICE AARP MEDICARE [employer] [place] [employer] [facility] Address: [address] [place] [address] [facility] MEDICARE Advance Directives For more information, please contact: [phone] Documents on File Type Date Recorded Patient Gravure Press Set Up Operator Expl anation ADVANCE DIRECTIVE 10/02/2023 POWER OF A TTORNEY-MEDICAL ADVANCE DIRECTIVE 09/24/2023 12:04 PM POWER OF SUBCONTRACT MANAGER-MEDICAL * Full Code (Latest Code Status on File) Date Activated Date Inactivated Comments 09/11/2023 11:44 PM 09/27/2023 5:14 PM * Full Code Date Activated Date Inactivated Comments 07/11/2023 9:55 PM 07/27/2023 10:19 PM * Full Code Date Activated Date Inactivated Comments 07/06/2023 5:53 PM 07/11/2023 9:29 PM * Full Code Date Activated Date Inactivated Comments 01/23/2019 12:38 PM 01/31/2019 7:58 PM Care Teams University Relations Vice President Relationship Specialty Start Date End Date Denny Gaston MD PCP - General 07/15/16 Miscellaneous, Not In File 07/27/23
--- OUTSIDE RECORDS SUMMARY | 2024-12-02 17:03 | XMS_ITS | Encounter Summary ---
Author Organization [facility] Address [address] [place] [id number] Care Team Providers Care Planetarium Technician Name Role Phone Denny Gaston MD Primary Care Provider [phone] Reason for Referral * Surgical (Routine) - Closed Specialty Diagnoses / Procedures Referred By Contalvaro t Referred To Contact Procedures Case request operating room: INJECTION EPIDURAL STEROID CERVICAL C5-6 Sandy Elise NP [address] [facility] [address] [place] [address] Phone: tel: [phone] fax: Referral ID Status Reason Start Date Expiration Date Visits Re quested Visits Authorized [id number] Closed 04/13/2018 05/14/2019 1 1 E TENDER Encounter Details Date Type Department Care Team (Late st Contact Info) Description 04/13/2018 Prep for Procedure [facility] [place] [address] [id number] Sandy Elise NP [address] [facility] [address] [place] [phone] (Work) Social History Tobacco Use Types Packs/Day Years Used Date Smoking Tobacco: Former Cigarettes Q uit: 10/05/1986 Smokeless Tobacco: Never Alcohol Use Standard Drinks/Week Comments No 0 (1 standard drink = 0.6 oz pure alcohol) recovering alcoholic, sober for 32 years Sex and Gender Information Value Date Recorded Sex Assigned at Not on file Legal Sex Male 2:01 PM CDT Gender Identity Male 05/21/2021 1:54 PM SWAGE TENDER Sexual Orientation Straight 03/31/2021 5: 23 PM SWAGE TENDER Occupation Industry Job Start Date Job End Date Not on file Not on file Not on file Not on file documented as of this encounter Plan of Treatment Not on file documented as of this encounter Visit Diagnoses Not on filedocumented in this encounter Care Teams Planetarium Technician Relationship Specialty Start Date End Date Denny Gaston MD PCP - General FAMILY PRACTICE 01/26/18 documented as of this encounter
--- OUTSIDE RECORDS SUMMARY | 2024-12-02 17:06 | XMS_ITS | Encounter Summary ---
Author Organization [facility] Address [address] [place] [id number] Care Team Providers Care Etl Programmer Name Role Phone Denny Gaston MD Primary Care Provider [phone]- [phone] Encounter Details Date Type Department Care Team (Late st Contact Info) Description 04/02/[address] [facility] [place] [address] [id number] Sandy Elise NP [address] [facility] [address] [place] [address] [phone] (Work) Social History Tobacco Use Types Packs/Day [...] CDT Gender Identity Male 05/21/2021 1:54 PM EMPLOYEE BENEFITS COORDINATOR Sexual Orientation Straight 03/31/2021 5: 23 PM EMPLOYEE BENEFITS COORDINATOR Occupation Industry Job Start Date Job End Date Not on file Not on file Not on file Not on file COVID-19 Exposure Response Date Recorded In the last month, have you been in contact with someone who was confirmed or suspected to have Coronavirus / COVID-19? No / Unsure 04/02/2021 12:11 PM EMPLOYEE BENEFITS COORDINATOR documented as of this encounter Functional Status * Calculated C-SSRS Risk Score (Lifetime/Recent) Answer Date of Assessment Author Status No Risk Indicated 04/02/2021 11:58 AM EMPLOYEE BENEFITS COORDINATOR Ko Zafar RN Active * [place] Suicide Severity Rating Scale (Screener/Recent Self-Report) Question Answer Date of Assessment Author Status 1. Wish to be (Past 1 Month) No 04/02/2021 11:58 AM EMPLOYEE BENEFITS COORDINATOR Girish Zafar RN Act jessica 2. Non-Specific Active Suicidal Thoughts (Past 1 Month) No 04/02/2021 11:58 AM Girish Yu RN Act jessica 6. Suicidal Behavior (Lifetime) No 04/02/2021 11:58 AM Girish Yu RN Act jessica documented as of this encounter Plan of Treatment Not on file documented as of this encounter Visit Diagnoses Not on filedocumented in this encounter Care Teams Etl Programmer Relationship Specialty Start Date End Date Denny Gaston MD PCP - General FAMILY PRACTICE 01/26/18 documented as of this encounter
--- OUTSIDE RECORDS SUMMARY | 2024-12-02 17:06 | XMS_ITS | Encounter Summary ---
Author Organization [facility] Address [address] [place] [address] Care Team Providers Care Sales Engineer Account Manager Name Role Phone Denny Gaston MD Primary Care Provider [phone]- [phone] Encounter Details Date Type Department Care Team (Late st Contact Info) Description 04/02/2021 Prep for Procedure [facility] [place] [address] [id number] Sandy Elise NP [address] [facility] [address] [place] [address] [phone] (Work) Social History Tobacco Use Types Packs/Day [...] CDT Gender Identity Male 05/21/2021 1:54 PM 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 No / Unsure 04/02/2021 12:11 PM WELL LOGGING CAPTAIN MUD ANALYSIS documented as of this encounter Functional Status * Calculated C-SSRS Risk Score (Lifetime/Recent) Answer Date of Assessment Author Status No Risk Indicated 04/02/2021 11:58 AM WELL LOGGING CAPTAIN MUD ANALYSIS Ko Zafar RN Active * [place] Suicide Severity Rating Scale (Screener/Recent Self-Report) Question Answer Date of Assessment Author Status 1. Wish to be (Past 1 Month) No 04/02/2021 11:58 AM WELL LOGGING CAPTAIN MUD ANALYSIS Girish Zafar RN Act jessica 2. Non-Specific Active Suicidal Thoughts (Past 1 Month) No 04/02/2021 11:58 AM Girish Yu RN Act jessica 6. Suicidal Behavior (Lifetime) No 04/02/2021 11:58 AM Girish Yu RN Act jessica documented as of this encounter Plan of Treatment Not on file documented as of this encounter Visit Diagnoses Not on filedocumented in this encounter Care Teams Sales Engineer Account Manager Relationship Specialty Start Date End Date Denny Gaston MD PCP - General FAMILY PRACTICE 01/26/18 documented as of this encounter
--- OUTSIDE RECORDS SUMMARY | 2024-12-02 17:06 | XMS_ITS | Clinical Summary ---
Author Organization [facility] Address [address] [place] [address] Care Team Providers Care Sales And Training Specialist Name Role Phone Denny Gaston MD Primary Care Provider [phone]- [phone] Allergies Active Allergy Reactions Criticality Noted Date Comments Penicillins Rash Medium 11/04/2016 Reaction: Rash, Medications baclofen 10 MG tablet Take 10 mg by mouth. Active diclofenac sodium 1 % gel JOSE 2 GRAMS TO THE HANDS QID 5 8 Active atorvastatin 80 MG tablet Take 40 mg by mouth daily. 1 Active DULoxetine 30 MG capsule 1 Active sotalol 120 MG tablet Take 60 mg by mouth 2 (two) times daily. 1 Active dilTIAZem CD 240 MG 24 hr capsule Take 120 mg by mouth daily. Active acetaminophen 325 MG tablet Take 650 mg by mouth every 6 (six) hours as needed for Pain. Active psyllium 51.7 % packet Take 1 packet by mouth 3 (three) times daily. Active triamcinolone 0.1 % ointment Apply topically 2 (two) times daily. 1 Active diazePAM 5 MG tablet TAKE 1 TABLET BY MOUTH EVERY DAY AT BEDTIME NEEDED FOR MUSCLE SPASMS 1 Active REPATHA SURECLICK 140 MG/ML injection (PEN) 140 mg every 14 (fourteen) days. 2 Active meclizine 12.5 MG tablet 1 Active ASPIRIN LOW DOSE 81 MG tablet Take 81 mg by mouth daily. 2 Active Active Problems Problem Noted Date Diagnosed Date Lumbar radiculopathy 04/02/2021 Facet arthropathy, cervical 01/26/2018 Cervical radiculopathy 10/05/2017 Family History Medical History Relation Comments kidney transplant Brother diabetic Father Relation Status Comments Brother Father Social History Tobacco Use Types Packs/Day Years [...] CDT Gender Identity Male 05/21/2021 1:54 PM MANAGER TRACK Sexual Orientation Straight 03/31/2021 5: 23 PM MANAGER TRACK Occupation Industry Job Start Date Job End Date Not on file Not on file Not on file Not on file Last Filed Vital Signs Vital Sign Reading Time Taken Comments Blood Pressure 152/74 03/31/2022 10:08 AM MANAGER TRACK Pulse 74 03/31/2022 10:08 AM MANAGER TRACK Temperature 36.4 C (97.6 F) 03/31/2022 10:08 AM MANAGER TRACK Respiratory Rate 16 03/31/2022 10:08 AM MANAGER TRACK Oxygen Saturation 100% 03/31/2022 10:08 AM MANAGER TRACK Inhaled Oxygen Concentration - - Weight 85.5 kg (188 lb 7.9 oz) 03/31/2022 10:08 AM MANAGER TRACK Height 175.3 cm (5' 9) 03/31/2022 10:08 AM MANAGER TRACK Body Mass Index 27.84 03/31/2022 10:08 AM MANAGER TRACK Plan of Treatment Health Maintenance Due Date Last Done Comments Colorectal Cancer Screening Colonoscopy (10 Years) 1950 Hepatitis C 1968 Annual Medicare Wellness Visit 06/02/2015 DTaP, Tdap and Td Vaccines (1 - Tdap) 01/29/2021 01/28/2021 Pneumococcal Vaccine: 50+ Years (2 of 2 - PCV) 01/28/2022 01/28/2021 COVID-19 Vaccine ( - season) 2024 12/02/2021, 07/08/2021, 11/16/2020, Additional history exists RSV Immunization or 60+ Years (1 - 1-dose 75+ series) 2025 Zoster Vaccines Completed 04/02/2021, 01/21/2021 Meningococcal B Vaccine Aged Out No l onger eligible based on patient's age to complete this topic Meningococcal Vaccine Aged Out No drake alvarado eligible based on patient's age to complete this topic RSV Immunizations Under 20 Months Aged Out No longer eligible based on patient's age to complete this topic Insurance MEDICARE [facility] Care Teams Sales And Training Specialist Relationship Specialty Start Date End Date Denny Gaston MD PCP - General FAMILY PRACTICE 01/26/18
== END 2024-12-02 14:09 | disposition home or self-care (01) ==
PROVIDERS: PCP Family Medicine; Visit Provider Nurse Practitioner Family
DX: R60.0 Localized edema (principal)
CPT/HCPCS: 93970

== ENCOUNTER 2025-03-06 13:22 | Outpatient (CLI) | payer BC, MEDICARE, SELFPAY ==
--- NOTE | ~2025-03-06 | CT_ITS ---
EXAMINATION: CT brain wo con, 03/06/2025 13:29 BUILD AND DEPLOYMENT ENGINEER HISTORY: Hallucinations, unspecified vertigo COMPARISON: No comparisons available. Technique: Axial images obtained of the brain without contrast. One or more of the following dose reduction techniques were used: automated exposure control, adjustment of the mA and/or kV according to patient size, use of iterative reconstruction technique. Findings: No acute infarct or parenchymal hemorrhage. No abnormal mass or mass effect. No midline shift. No extra-axial fluid collections. No hydrocephalus. Mastoid air cells unremarkable. Sinuses and orbits unremarkable. No acute fracture. No significant facial or scalp soft tissue swelling evident. No radiopaque foreign body is seen. Impression: 1.No acute intracranial abnormality. Reviewed, dictated and finalized at location P. D AND DEPLOYMENT ENGINEER Impression: 1.No acute intracranial abnormality.
== END 2025-03-06 13:23 | disposition home or self-care (01) ==
LOC: MICIMG 13:23
PROVIDERS: PCP Family Medicine; Visit Provider Family Medicine
DX: R44.3 Hallucinations, unspecified (principal); R42 Dizziness and giddiness; G31.84 Mild cognitive impairment of uncertain or unknown etiology
CPT/HCPCS: 70450